=== PATIENT | male | born 1945 | race Caucasian/White ===

== ENCOUNTER 2017-07-04 19:36 | Emergency (ER) | payer MEDICARE, OTHER ==
[2014-01-17 10:52] VITALS: BMI 21.5
[~2017-07-04 19:36] MED LIST: ASPIRIN EC81 M1 PO; COUMADIN1 MG; RYTHMOL225 MG PO
[2017-07-04 20:06] LABS: BASOPHILS 0.1 % (0-2); EOSINOPHILS 0.1 % (0-7); HEMATOCRIT 41.7 % (42.0-54.0); HEMOGLOBIN 14.1 g/dL (13.5-17.5); IMMATURE GRANULOCYTES 0.1 % (0-5); LYMPHOCYTES 3.4 % (15-50); MCH 30.5 pg (26.0-34.0); MCHC 33.8 g/dL (31.0-37.0); MCV 90.3 fL (80.0-100.0); MEAN PLATELET VOLUME 11.2 fL (7.4-10.4); MONOCYTES 7.8 % (2-11); NEUTROPHILS 88.5 % (40-80); PLATELET COUNT 160 10x3/uL (130-400); RBC 4.62 10x6/uL (4.20-6.10); RDW 13.2 % (11.5-14.5); WBC 15.2 10x3/uL (4.8-10.8)
[2017-07-04 20:22] LABS: ALBUMIN 3.1 g/dL (3.4-5.0); ANION GAP 12.1 mmol/L (8-16); BILIRUBIN - TOTAL 0.75 mg/dL (0.2-1.3); CALCIUM 9.1 mg/dL (8.5-10.1); CARBON DIOXIDE 25.8 mmol/L (21.0-32.0); CREATININE - SERUM 1.5 mg/dL (0.6-1.3); POTASSIUM - SERUM 3.9 mmol/L (3.5-5.1); PROTEIN - SERUM 7.5 g/dL (6.4-8.2)
[2017-07-04 22:02] LABS: INR 2.06 (0.85-1.17); PROTIME 22.6 SECONDS (11.6-15.0)
[2017-07-04 22:06] LABS: CREATINE KINASE 45 UL (21-232); PRO BNP 298 pg/mL (0-125); TROPONIN-I < 0.017 ng/mL (0.000-0.060)
== END 2017-07-04 22:42 | disposition home or self-care (01) ==
LOC: D.ER 19:36
PROVIDERS: Emergency Medicine; Nurse Practitioner Family
DX: J20.9 Acute bronchitis, unspecified (principal); J44.9 Chronic obstructive pulmonary disease, unspecified; I25.10 Atherosclerotic heart disease of native coronary artery without angina pectoris; R00.0 Tachycardia, unspecified; I45.10 Unspecified right bundle-branch block

== ENCOUNTER 2019-01-29 19:31 | Inpatient (IN) | payer MEDICARE, OTHER ==
[~2019-01-29] VITALS: Ht 177.8 cm; Wt 76.6 kg
[2019-01-29] MEDS ORDERED: SPIRIVA18 MCG INH (19:37)
[2019-01-29] MEDS ORDERED: SYMBICORT 16010.2 GM INH (19:37)
--- NOTE | 2019-01-29 19:53 | NUR ---
NTG ADMINISTERED PER EDP ELAINA INSTRUCTION.
[2019-01-29 20:02] LABS: BASOPHILS 0.2 % (0-2); EOSINOPHILS 3.4 % (0-7); HEMATOCRIT 44.3 % (42.0-54.0); HEMOGLOBIN 15.2 g/dL (13.5-17.5); IMMATURE GRANULOCYTES 0.2 % (0-5); MCH 30.7 pg (26.0-34.0); MCHC 34.3 g/dL (31.0-37.0); MCV 89.5 fL (80.0-100.0); MEAN PLATELET VOLUME 10.8 fL (7.4-10.4); MONOCYTES 12.6 % (2-11); NEUTROPHILS 62.6 % (40-80); PLATELET COUNT 189 10x3/uL (130-400); RBC 4.95 10x6/uL (4.20-6.10); RDW 13.1 % (11.5-14.5); WBC 9.9 10x3/uL (4.8-10.8)
--- NOTE | 2019-01-29 20:05 | NUR ---
PT DENIES RELIEF FROM NTG.
--- NOTE | 2019-01-29 20:17 | NUR ---
CONSENT SIGNED BY PT AND WITNESSED BY 2 RNS FOR CHEST TUBE PLACEMENT.
[2019-01-29 20:25] LABS: APTT 25.5 SECONDS (22.8-39.4); INR 0.98 (0.85-1.17); PROTIME 12.4 SECONDS (11.6-15.0)
[2019-01-29 20:28] LABS: ALBUMIN 3.7 g/dL (3.4-5.0); ALKALINE PHOSPHATASE 96 U/L (46-116); ALT (SGPT) 18 U/L (10-68); BILIRUBIN - TOTAL 0.32 mg/dL (0.2-1.3); CALC OSMOLALITY 283 mosm/kg (275-300); CALCIUM 9.5 mg/dL (8.5-10.1); CARBON DIOXIDE 25.8 mmol/L (21.0-32.0); CHLORIDE - SERUM 104 mmol/L (98-107); CREATININE - SERUM 1.3 mg/dL (0.6-1.3); GLUCOSE 122 mg/dL (74-106); POTASSIUM - SERUM 4.1 mmol/L (3.5-5.1); SODIUM 141 mmol/L (136-145); UREA NITROGEN 19 mg/dL (7-18); eGFR NON AFRICAN AMERICAN 57 mL/min (90-120)
[2019-01-29 20:30] VITALS: BP 141/83
[2019-01-29 20:39] LABS: CKMB 0.5 U/L (0.0-3.6); CREATINE KINASE 43 UL (21-232); MAGNESIUM - SERUM 2.1 mg/dL (1.8-2.4)
[2019-01-29 20:47] LABS: TROPONIN-I < 0.017 ng/mL (0.000-0.060)
[2019-01-29 21:00] VITALS: BP 130/89
--- NOTE | 2019-01-29 21:05 | NUR ---
RN'S AND EDP ELAINA AT PT BEDSIDE FOR CHEST TUBE INSERTION USING STERILE TECHNIQUE.
[2019-01-29 21:30] VITALS: BP 133/84
--- NOTE | 2019-01-29 21:32 | NUR ---
PT REPORTS DECREASE IN PAIN AND DECREASE IN SOB. O2 SAT 91% ON 4L.
--- NOTE | 2019-01-29 22:09 | NUR ---
PT ROOM CHANGED FROM CV03 TO ICU 2301, RN SPOKE TO LEILANI DILL REGARDING PT.
--- NOTE | 2019-01-29 22:15 | NUR ---
PATIENT ARRIVED ON UNIT VIA STRETCHER ACCCOMPANIED BY ER STAFF. LEFT ANTERIOR CHEST TUBE NOTED. PATIENT SELF TRANSFERRED FROM STRETCHER TO ICU BED - HOOKED TO MONITORS, ALARMS ON AND FUNCTIONING AT THIS TIME. PATIENT EXPERIENCE SOB ON EXERTION, INCREASE RESPIRATORY RATE, HEART RATE AND BLOOD PRESSURE NOTED AT THIS TIME. O2 TIRTRATED TO 4L INSTRUCTED PATIENT TO SLOW, PURSE LIP BREATHING. PATIENT ABLE TO SLOW RESPIRATIONS WITH COACHING. VITALS RETAKEN SUICDIE SCREENING, HEALTH HISTORY, MEDICATION REVIEW AND ASSESSMENT COMPLETED AT THIS TIME. AT BEDSIDE KEEPING BELONGINGS WITH HER. PATIENT REFUSES TO REMOVE PANTS AND WEAR A HOSPITAL GOWN AT THIS TIME.
[2019-01-29] MEDS ORDERED: METOPROLOL TART25 MG PO (22:53)
[2019-01-29] MEDS ORDERED: SINGULAIR10 MG PO (22:54)
[2019-01-29 22:55] VITALS: BP 153/96; BMI 22.2
[2019-01-29] MEDS ORDERED: ALBUTEROL SULF8.5 GM INH (22:56)
[2019-01-30] VITALS (9 sets, daily range): BP systolic 107–135; BP diastolic 53–87; BMI 22.2
--- NOTE | 2019-01-30 04:07 | NUR ---
RADIOLOGY AT BEDSIDE FOR CHEST X-RAY. PATIENT DENIES NEEDS AT THIS TIME
--- NOTE | 2019-01-30 07:00 | NUR ---
REPORT RECEIVED. ASSESSMENT COMPLETE PER FLOW SHEET. VSS. PT DENEIS NEEDS WILL CONTINUE TO MONITOR
--- NOTE | 2019-01-30 08:54 | NUR ---
FAMILY AT [facility] GIVEN UPDATE. ATE 80% BREAKFAST. DENIES NEEDS WILL CONTNIUE TO MONITOR
--- NOTE | 2019-01-30 10:50 | NUR ---
DR MORRISON AT BEDSIDE GIVEN UPDATE. NEW ORDERS RECEIVED
--- NOTE | 2019-01-30 12:10 | NUR ---
FAMILY AT BEDSIDE GIVEN UDPATE NO NEW CHANGES WILL CONTINUE TO MONITOR
--- NOTE | 2019-01-30 15:15 | NUR ---
PT RECIEVED FROM ICU TO ROOM 2206. AWAKE AND ALERT. REPORTS SOB AT THIS TIME, PT REPORTS DUE TO TRANSFER. O2 @ 5L NC IN PLACE AT THIS TIME, EDUCATED PT TO TAKE SLOW DEEP BREATHS, SOB LESSENED. CHEST TUBE TO LEFT CHEST WALL TO 20CM SUCTIONING AT THIS TIME, CHEST TUBE CANISTER INTACT WITH SCANT AMOUNT OF BLOOD TINGED DRAINAGE. IV TO LEFT AC SALINE LOC'D. ORIENTED TO CL, ROOM AND BED CONTROLS. DENIES QUESTIONS AT THIS TIME. CL WITHIN REACH. ENCOURAGED TO CALL WITH NEEDS. CONTINUE POC
--- NOTE | 2019-01-30 19:46 | NUR ---
WALKED IN PT ROOM TO INTRODUCE MYSELF FOR CHANGE OF SHIFT. PT ALERT AND ORIENTED. SHOWING SIGNS OF SHORTNESS OF BREATH. PT HAD IN HIS HAND HIS CHEST TUBE. IT HAS COMPLETLEY COME OUT OF PT CHEST. PT STATES STARTING TO HAVE SHORTNESS OF BREATH. 5LO2 NASAL CANNULA. WILL CALL AND FALLOW UP.
--- NOTE | 2019-01-30 21:46 | NUR ---
ASSISTED DR PATE PLACEMENT OF CHEST TUBE AT BEDSIDE. CHEST X-RAY BEING DONE NOW.
--- NOTE | 2019-01-31 01:38 | NUR ---
PT RESTING IN BED. ALERT AND ORIENTED. NO SIGNS OF DISTRESS. BREATHING EVEN AND UNLABORED. IV SITE LT AC DRESSING CLEAN DRY AND INTACT. NO SIGNS OF INFECTION. SKIN CLEAN DRY AND INTACT. 5LO2 NASAL CANNULA. DRESSING RT CHEST CLEAN DRY AND INTACT. LT LOWER CHEST TUBE IN PLACE. DRESSING CLEAN DRY AND INTACT. BOWEL SOUNDS ACTIVE. NO LOWER LEG SWELLING PRESENT. WILL CONTINUE PLAN OF CARE. CALL LIGHT IN REACH. BED LOWERED AND LOCKED. BED RAILS UPX2.
--- NOTE | 2019-01-31 04:24 | NUR ---
I have reviewed this patient and I concur with the Shift Assessment completed by the Licensed Practical Nurse today this shift.
[2019-01-31 04:49] LABS: BASOPHILS 0.1 % (0-2); EOSINOPHILS 2.3 % (0-7); HEMATOCRIT 39.4 % (42.0-54.0); HEMOGLOBIN 13.4 g/dL (13.5-17.5); IMMATURE GRANULOCYTES 0.2 % (0-5); LYMPHOCYTES 14.5 % (15-50); MCH 30.9 pg (26.0-34.0); MCV 90.8 fL (80.0-100.0); MONOCYTES 11.3 % (2-11); NEUTROPHILS 71.6 % (40-80); PLATELET COUNT 163 10x3/uL (130-400); RBC 4.34 10x6/uL (4.20-6.10); RDW 13.3 % (11.5-14.5); WBC 10.1 10x3/uL (4.8-10.8)
[2019-01-31 05:04] LABS: ANION GAP 15.3 mmol/L (8-16); CALCIUM 8.9 mg/dL (8.5-10.1); CARBON DIOXIDE 26.7 mmol/L (21.0-32.0); CREATININE - SERUM 1.3 mg/dL (0.6-1.3)
[2019-01-31 05:08] VITALS: BP 126/85
--- NOTE | 2019-01-31 07:15 | NUR ---
REC'D IN BED AWAKE AND ALERT. RESP EVEN AND UNLABORED WITH NO DISTRESS NOTED. CAN EXPRESS NEEDS AND WANTS. NO C/O NOTED OR VOICED. ASSESSMENT COMPLETED. C/L IN REACH AT BEDSIDE.
[2019-01-31 08:56] VITALS: BP 124/63
--- NOTE | 2019-01-31 10:21 | NUR ---
MEDICATED WITH MOPRHINE AT THIS TIME FOR C/O CHEST PAIN RATING 9/10 ON PAIN SCALE. C/L IN REACH AT BEDSIDE.
--- NOTE | 2019-01-31 11:46 | NUR ---
I have reviewed this patient and I concur with the Shift Assessment completed by the Licensed Practical Nurse today this shift.
[2019-01-31 12:55] VITALS: BP 127/63
--- NOTE | 2019-01-31 13:44 | MORECARE ---
CASE MANAGEMENT DISCHARGE SUMMARY PATIENT: XIMENA MANZANO UNIT: [id number] ADM DATE: 01/29/19 AGE: 73 : 44 SEX: M ROOM/BED: D.2207 AUTHOR: MULUGETA HENRY PHYSICIAN: REFERRING PHYSICIAN: GWENDOLYN PRESLEY MD DATE OF SERVICE: 01/31/19 Discharge Plan Patient Name: XIMENA MANZANO Facility: [facility]:[place] : 1945 Planned Disposition: Inpatient Rehab Anticipated Discharge Date: Discharge Date: Expected LOS: Initial Reviewer: [email or web address] Initial Review Date: 01/29/2019 Generated: 01/31/19 2:44 pm Comments DCP- Discharge Planning Updated by [id number]: Anabella Dickey on 01/31/19 12:[address] Patient Name: XIMENA MANZANO Admission Status: ER Accout number: [id number] Admission Date: 01-29-2019 : 1945 Admission Diagnosis: Attending: GWENDOLYN PRESLEY Current LOS: 2 Anticipated DC Date: Planned Disposition: Inpatient Rehab Primary Insurance: MEDICARE A & B Discharge Planning Comments: CM met with patient to complete initial dc planning assessment. CM educated patient on the CM role and verbal consent given by patient to complete assessment. Patient lives at home with is where he is independent with his care, but has been having issues with walking per his . At discharge patient plans to return home and feels this is a safe discharge. CM discussed availability of home health, rehab services, and medical equipment. He has home O2 that he wears 24/7 from [facility] in [place] (NNAMDI signed for DME) His stated that he needs a walker with a chair, because he has been trouble before he was in the hospital. They discussed inpatient rehab when he is stable to DC & both thought it would be a good idea when able. Patient denied any other known discharge needs at this time. CM will continue to follow and will assist as needed with dc plans/needs. Veneer Drier Feeder: Anabella Dickey DCPIA - Discharge Planning Initial Assessment Updated by [id number]: Anabella Dickey on 01/31/19 1:38 pm * Is the patient Alert and Oriented? Yes * How many steps to enter\exit or inside your home? * PCP [facility]OREAN * [place] [facility] [place] * Preadmission Environment Home with Family * ADLs Independent * Equipment Oxygen * List name and contact numbers for known caregivers / representatives who currently or will assist patient after discharge: RODNEY MANZANO [phone] * Verbal permission to speak to the caregivers and representatives has been obtained from the patient. Yes * Community resources currently utilized None * Additional services required to return to the preadmission environment? Yes * Has this patient been hospitalized within the prior 30 days at any hospital? No Coverage Notice Reviewer: [id number] Damien Dickey Notice Issued Date-Time: 01/31/2019 13:35 Notice Type: Patient Choice Letter Notice Delivered To: Patient Relationship to Patient: Meat And Poultry Inspector Name: Delivery Method: HAND - Hand Delivered Vane Days: Prior Verbal Notification: Recipient Understood Notice: Yes Recipient Signature: Yes Med Rec Note Co-signed by Attending: Coverage Notice Comment: nnamdi for [facility] in [place] Patient Name: XIMENA MANZANO Page [phone] at 1344 All edits/amendments must be made on the electronic document DICTATION DATE: 01/31/19 1344 SURGICAL PATHOLOGIST: HANG 01/31/19 1344 RPT#: [id number] DC DATE: STATUS: ADM IN [facility] [address] [place] [address] END OF REPORT
--- NOTE | 2019-01-31 14:18 | NUR ---
C/O LEFT CHEST PAIN RATING 9/10 ON PAIN SCALE. MEDICATED WITH MORPHINE PER ORDERS. C/L IN REACH
[2019-01-31 16:45] VITALS: BP 112/62
[2019-01-31 20:00] VITALS: BP 110/60
--- NOTE | 2019-01-31 22:09 | NUR ---
AWAKE,ALERT.NO COMPLAITNS AT PRESENT. DRSG TO UPPER LEFT CHEST INTACT WITHOUT DRAINAGE NOTED. CHEST TUBE TO LEFT CHEST INTACT TO 20 CM H20 SUCTION. NO DISTRESS NOTED. DRESSING INTACT TO SITE.02 @ 6L PER NC ON. RESP UNLABORED. CL IN REACH. AT BEDSIDE. REFUSES LOPRESSOR AT THIS TIME. STATES HE ONLY TAKES IT ONCE DAILY.
[2019-02-01] VITALS: BP 104/67
--- NOTE | 2019-02-01 01:26 | NUR ---
I have reviewed this patient and I concur with the Shift Assessment completed by the Licensed Practical Nurse today this shift.
[2019-02-01 04:00] VITALS: BP 106/76
[2019-02-01 06:00] LABS: BASOPHILS 0.1 % (0-2); EOSINOPHILS 3.4 % (0-7); HEMATOCRIT 39.7 % (42.0-54.0); IMMATURE GRANULOCYTES 0.2 % (0-5); LYMPHOCYTES 15.6 % (15-50); MCHC 35.3 g/dL (31.0-37.0); MCV 90.6 fL (80.0-100.0); MEAN PLATELET VOLUME 11.8 fL (7.4-10.4); MONOCYTES 12.5 % (2-11); NEUTROPHILS 68.2 % (40-80); PLATELET COUNT 144 10x3/uL (130-400); RBC 4.38 10x6/uL (4.20-6.10); RDW 13.2 % (11.5-14.5); WBC 11.1 10x3/uL (4.8-10.8)
[2019-02-01 06:35] LABS: ANION GAP 10.9 mmol/L (8-16); CALCIUM 8.7 mg/dL (8.5-10.1); CARBON DIOXIDE 28.7 mmol/L (21.0-32.0); CREATININE - SERUM 1.1 mg/dL (0.6-1.3); POTASSIUM - SERUM 4.6 mmol/L (3.5-5.1); T4 THYROXIN - FREE 1.33 ng/dL (0.76-1.46); THYROID STIMULATING HORMONE 0.67 uIU/mL (0.36-3.74)
--- NOTE | 2019-02-01 07:20 | NUR ---
REC'D IN BED AWAKE AND ALERT. RESP EVEN AND UNLABORED WITH O2 IN USE VIA NC AT 6 L/M. CAN VOICE NEEDS AND WANTS. NO C/O NOTED OR VOICED ON THIS AM. ASSESMENT COMPLETED. C/L IN REACH AT BEDSIDE.
[2019-02-01 07:59] VITALS: BP 124/64
[2019-02-01 11:55] VITALS: BP 133/57
--- NOTE | 2019-02-01 14:24 | NUR ---
I have reviewed this patient and I concur with the Shift Assessment completed by the Licensed Practical Nurse today this shift.
[2019-02-01 16:01] VITALS: BP 99/60
[2019-02-01 21:09] VITALS: BP 126/71
[2019-02-02 01:06] VITALS: BP 115/63
--- NOTE | 2019-02-02 05:03 | NUR ---
I have reviewed this patient and I concur with the Shift Assessment completed by the Licensed Practical Nurse today this shift.
[2019-02-02 05:37] VITALS: BP 122/68
[2019-02-02 06:46] LABS: BASOPHILS 0.1 % (0-2); EOSINOPHILS 3.7 % (0-7); HEMATOCRIT 39.4 % (42.0-54.0); HEMOGLOBIN 13.4 g/dL (13.5-17.5); IMMATURE GRANULOCYTES 0.2 % (0-5); LYMPHOCYTES 11.7 % (15-50); MCH 30.7 pg (26.0-34.0); MCV 90.2 fL (80.0-100.0); MONOCYTES 10.9 % (2-11); NEUTROPHILS 73.4 % (40-80); RBC 4.37 10x6/uL (4.20-6.10); WBC 10.5 10x3/uL (4.8-10.8)
[2019-02-02 06:56] LABS: PLATELET COUNT 173 10x3/uL (130-400)
[2019-02-02 07:11] LABS: ANION GAP 10.2 mmol/L (8-16); CARBON DIOXIDE 33.6 mmol/L (21.0-32.0); CREATININE - SERUM 1.2 mg/dL (0.6-1.3); POTASSIUM - SERUM 4.8 mmol/L (3.5-5.1)
--- NOTE | 2019-02-02 08:00 | NUR ---
0800 PATIENT IS ALERT AND ORIENTED, RESTING IN BED WITH HEAD OF BED ELEVATED. 02 AT 9L HIGH FLOW CANULA IN PLACE. CHEST TUBE TO LEFT CHEST. DRESSING CLEAN, DRY AND INTACT TO PLEUR EVAC TO 20CM, WALL SUCTIONING. DRAINING A BLOOD TINGED DRAINAGE. SALINE LOCK INTACT TO LEFT AC. STATES PAIN 10/10 WITH NAUSEA. TO ADMINISTER PAIN MEDS AND ANT-NAUSEA ORDERED. PATIENT DENIES FURTHER NEEDS AT THIS TIME. CALL LIGHT WITHIN REACH, ENCOURAGE TO CALL WITH NEEDS. CONTINUE PLAN OF CARE.
[2019-02-02 08:03] VITALS: BP 134/70
[2019-02-02 09:51] LABS: INR 1.05 (0.85-1.17); PROTIME 13.2 SECONDS (11.6-15.0)
[2019-02-02 12:17] VITALS: BP 102/72
--- NOTE | 2019-02-02 12:38 | NUR ---
NUTRITION F/U CHART REVIEWED, POOR PO INTAKE BREAKFAST. WILL ADD ENSURE TO MEALS IF PT AGREEABLE. RD FOLLOWING
--- NOTE | 2019-02-02 13:08 | NUR ---
TO PATIENTS ROOM PT ON 9L VIA HIGH FLOW NC, C/O PAIN, ASKED IF HE COULD HAVE PAIN MEDICINE. NOTICIED HIS LEFT AC IV IS SALINE LOCKED RED AND HARD AT SITE. THE SUB Q TISSUE UNDER TRICEPT AND FOREARM TO HAVE SWELLING AND IS RED. IV 20 GAUGE IV RESTARTED IN RIGHT FOREARM X 1 STICK, FLUSHED WITHOUT DIFFICULTY SECURED WITH TAPE AND TEGADERM, LABLED PLACED SALINE LOCKED. ROSARIO DUKE NOTIFIED OF PATIENT C/O PAIN. IV PAIN MEDICINE GIVEN ORDERED BY ROSARIO RN, AT BEDSIDE. CALL LIGHT IN REACH
[2019-02-02 15:39] VITALS: BP 113/662
--- NOTE | 2019-02-02 19:25 | NUR ---
SITTING UP IN BED WITH FAMILY AT BEDSIDE, ABLE TO VOICE ALL NEEDS, DENIES ANY PAIN OR DISTRESS AT THIS TIME. WILL NOTE ANY CHANGE.
[2019-02-02 20:05] VITALS: BP 120/66
--- NOTE | 2019-02-02 22:18 | NUR ---
I have reviewed this patient and I concur with the Shift Assessment completed by the Licensed Practical Nurse today this shift.
[2019-02-03 00:36] VITALS: BP 120/71
--- NOTE | 2019-02-03 02:29 | NUR ---
AT 0000 MORPHINE WAS GIVEN IV PER ORDERS, AT THIS TIME, PT IS RESTING, BUT HAS SOME SLIGHT NAUSEA, ZOFRAN GIVEN PER ORDERS, STATES HE HAS NOT HAD BOWEL MOVEMENT SINCE BEFORE ADMISSION, WILL PASS ON TO DAY NURSE. WILL NOTE ANY CHANGE.
--- NOTE | 2019-02-03 04:31 | NUR ---
has rested fair this shift. family still at bedside. will note any change.
[2019-02-03 04:55] VITALS: BP 118/75
[2019-02-03 06:32] LABS: BASOPHILS 0.1 % (0-2); EOSINOPHILS 3.8 % (0-7); HEMATOCRIT 36.7 % (42.0-54.0); HEMOGLOBIN 12.7 g/dL (13.5-17.5); IMMATURE GRANULOCYTES 0.3 % (0-5); MCH 30.9 pg (26.0-34.0); MCHC 34.6 g/dL (31.0-37.0); MCV 89.3 fL (80.0-100.0); MONOCYTES 10.9 % (2-11); NEUTROPHILS 74.9 % (40-80); PLATELET COUNT 173 10x3/uL (130-400); RBC 4.11 10x6/uL (4.20-6.10); RDW 12.9 % (11.5-14.5); WBC 10.7 10x3/uL (4.8-10.8)
[2019-02-03 06:47] LABS: ANION GAP 9.7 mmol/L (8-16); CARBON DIOXIDE 31.6 mmol/L (21.0-32.0); CREATININE - SERUM 1.1 mg/dL (0.6-1.3); POTASSIUM - SERUM 4.3 mmol/L (3.5-5.1)
[2019-02-03 08:04] VITALS: BP 123/62
--- NOTE | 2019-02-03 08:15 | NUR ---
PATIENT IS ALERT AND ORIENTED. PATIENTS STATES HE IS HAVING NO PAIN OR NAUSEA, BUT THAT HE HAS NOT HAD A BOWEL MOVEMENT IN DAYS. LEFT CHEST TUBE CONNECTED TO DRAINAGE SYSTEM @ 20CM. AMOUNT OF DRAINAGE IS 470ML. ENCOURAGED TO CALL WITH ANY NEEDS. CALL LIGHT AND TABLE IN REACH.
--- NOTE | 2019-02-03 09:30 | NUR ---
0930 PATIENT GIVENT ENEMA. 0950 PATIENT HAD LARGE BOWEL MOVEMENT.
[2019-02-03 12:50] VITALS: BP 112/70
[2019-02-03 16:42] VITALS: BP 110/69
--- NOTE | 2019-02-03 19:15 | NUR ---
PT ALERT AND ORIENTED WITH FAMILY AT BEDSIDE. PATIENT IS PALE. HAS LEFT SIDED CHEST TUBE WITH BLOODY OUTPUT NOTED. LUNGS PRESENT DIMINISHED BILATERALLY. O2 AT 9L HIGH FLOW. RIGHT WRIST IV IS SALINE LOCKED BUT FLUSHES WELL. HAND KIER BOILER AND FOOT PUMPS ARE STRONG AND EQUAL. PATIENT TURNS EASILY ON COMMANDS. DENIES FURTHER ISSUES AT THIS TIME. STATES THAT SHE WILL BE STAYING OVER NIGHT. CALL LIGHT IN REACH. CPOC.
[2019-02-03 20:00] VITALS: BP 122/68
[2019-02-03 20:20] LABS: APPEARANCE CLEAR (CLEAR); BILIRUBIN NEGATIVE (NEGATIVE); COLOR YELLOW (YELLOW); GLUCOSE NEGATIVE (NEGATIVE); KETONE NEGATIVE (NEGATIVE); NITRITE NEGATIVE (NEGATIVE); PROTEIN TRACE mg/dL (NEGATIVE); SPECIFIC GRAVITY 1.015 (1.005-1.020); UROBILINOGEN NORMAL (NORMAL)
[2019-02-04] VITALS: BP 118/66; BP 118/696
[2019-02-04 04:00] VITALS: BP 115/75
[2019-02-04 05:30] LABS: BASOPHILS 0.1 % (0-2); EOSINOPHILS 5.6 % (0-7); IMMATURE GRANULOCYTES 0.1 % (0-5); LYMPHOCYTES 9.2 % (15-50); MCH 30.5 pg (26.0-34.0); MCHC 34.3 g/dL (31.0-37.0); MCV 88.8 fL (80.0-100.0); MEAN PLATELET VOLUME 11.5 fL (7.4-10.4); MONOCYTES 12.6 % (2-11); NEUTROPHILS 72.4 % (40-80); PLATELET COUNT 175 10x3/uL (130-400); RBC 3.94 10x6/uL (4.20-6.10); RDW 12.8 % (11.5-14.5); WBC 9.5 10x3/uL (4.8-10.8)
[2019-02-04 05:55] LABS: ALBUMIN 2.3 g/dL (3.4-5.0); ALKALINE PHOSPHATASE 75 U/L (46-116); ALT (SGPT) 20 U/L (10-68); BILIRUBIN - TOTAL 0.34 mg/dL (0.2-1.3); CALC OSMOLALITY 277 mosm/kg (275-300); CALCIUM 8.6 mg/dL (8.5-10.1); CARBON DIOXIDE 31.5 mmol/L (21.0-32.0); CHLORIDE - SERUM 99 mmol/L (98-107); GLUCOSE 121 mg/dL (74-106); POTASSIUM - SERUM 4.4 mmol/L (3.5-5.1); PROTEIN - SERUM 6.4 g/dL (6.4-8.2); SODIUM 137 mmol/L (136-145); UREA NITROGEN 21 mg/dL (7-18); eGFR NON AFRICAN AMERICAN 78 mL/min (90-120)
[2019-02-04 06:03] LABS: APTT 35.3 SECONDS (22.8-39.4); INR 1.06 (0.85-1.17); PROTIME 13.3 SECONDS (11.6-15.0)
--- NOTE | 2019-02-04 06:42 | NUR ---
I have reviewed this patient and I concur with the Shift Assessment completed by the Licensed Practical Nurse today this shift.
[2019-02-04 08:13] VITALS: BP 128/72
[2019-02-04 13:21] VITALS: BP 130/72
[2019-02-04 16:11] VITALS: BP 114/64
[2019-02-04 19:55] VITALS: BP 130/67
--- NOTE | 2019-02-04 22:01 | NUR ---
PT IN BED RESTING WITH AT BEDSIDE. ALERT AND ORENTED ABLE TO VOICE NEEDS AND WANTS TO STAFF. O2 AT 9 L HIGH FLOW. TELEMETRY IN PLACE CHEST TUB IN PLACE TO LEFT SIDE.ABD IS DISTRENDED WITH ACTIVE BOULE SOUNDS REFUSED 2ED HALF OF ENAMA AT THIS TIME STATED HE WANTED TO WATE. CALL LIGHT AND WATER IN REACH, BED LOW,
[2019-02-05] VITALS (7 sets, daily range): BP systolic 108–135; BP diastolic 66–77
[2019-02-05 05:11] LABS: BASOPHILS 0.1 % (0-2); EOSINOPHILS 4.8 % (0-7); HEMATOCRIT 33.7 % (42.0-54.0); HEMOGLOBIN 11.5 g/dL (13.5-17.5); IMMATURE GRANULOCYTES 0.2 % (0-5); MCH 30.5 pg (26.0-34.0); MCHC 34.1 g/dL (31.0-37.0); MCV 89.4 fL (80.0-100.0); MEAN PLATELET VOLUME 10.9 fL (7.4-10.4); MONOCYTES 12.6 % (2-11); NEUTROPHILS 73.3 % (40-80); PLATELET COUNT 178 10x3/uL (130-400); RBC 3.77 10x6/uL (4.20-6.10); RDW 12.8 % (11.5-14.5); WBC 9.8 10x3/uL (4.8-10.8)
[2019-02-05 05:23] LABS: CALCIUM 8.2 mg/dL (8.5-10.1); CARBON DIOXIDE 29.5 mmol/L (21.0-32.0); CHLORIDE - SERUM 98 mmol/L (98-107); GLUCOSE 129 mg/dL (74-106); POTASSIUM - SERUM 4.7 mmol/L (3.5-5.1); SODIUM 134 mmol/L (136-145); eGFR NON AFRICAN AMERICAN 78 mL/min (90-120)
[2019-02-05 05:43] LABS: CALC OSMOLALITY 273 mosm/kg (275-300); UREA NITROGEN 24 mg/dL (7-18)
--- NOTE | 2019-02-05 15:00 | NUR ---
PATIENT RECIEVED SS ENEMA AT THIS TIME WITH NO RESULTS. PATIENT STATES THAT HE DOESNT FEEL ANY BLOATING OR PRESSURE LIKE HE NEEDS TO HAVE A BM. STATED HE HASNT ATE THAT MUCH IN A FEW DAYS. IV INTACT AT THIS TIME. FAMILY AT BEDSIDE. CALL LIGHT WITHIN REACH.
--- NOTE | 2019-02-05 17:51 | MORECARE ---
CASE MANAGEMENT DISCHARGE SUMMARY PATIENT: XIMENA MANZANO UNIT: [id number] ADM DATE: 01/29/19 AGE: 73 : 44 SEX: M ROOM/BED: D.2207 AUTHOR: MULUGETA HENRY PHYSICIAN: REFERRING PHYSICIAN: GWENDOLYN PRESLEY MD DATE OF SERVICE: 02/05/19 Discharge Plan Patient Name: XIMENA MANZANO Facility: [facility]:[place] : 1945 Planned Disposition: Inpatient Rehab Anticipated Discharge Date: 02/05/19 Discharge Date: Expected LOS: 7 Initial Reviewer: [email or web address] Initial Review Date: 01/29/2019 Generated: 02/05/19 6:51 pm Comments DCP- Discharge Planning Updated by [id number]: Anabella Dickey on 01/31/19 12:[address] Patient Name: XIMENA MANZANO Admission Status: ER Accout number: [id number] Admission Date: 01-29-2019 : 1945 Admission Diagnosis: Attending: GWENDOLYN PRESLEY Current LOS: 2 Anticipated DC Date: Planned Disposition: Inpatient Rehab Primary Insurance: MEDICARE A & B Discharge Planning Comments: CM met with patient to complete initial dc planning assessment. CM educated patient on the CM role and verbal consent given by patient to complete assessment. Patient lives at home with is where he is independent with his care, but has been having issues with walking per his . At discharge patient plans to return home and feels this is a safe discharge. CM discussed availability of home health, rehab services, and medical equipment. He has home O2 that he wears 24/7 from [facility] in [place] (NNAMDI signed for DME) His stated that he needs a walker with a chair, because he has been trouble before he was in the hospital. They discussed inpatient rehab when he is stable to DC & both thought it would be a good idea when able. Patient denied any other known discharge needs at this time. CM will continue to follow and will assist as needed with dc plans/needs. Relish Blender: Anabella Dickey DCPIA - Discharge Planning Initial Assessment Updated by [email or web address]: Anabella Dickey on 01/31/19 1:38 pm * Is the patient Alert and Oriented? Yes * How many steps to enter\exit or inside your home? * PCP [facility] * [facility] [facility] [place] * Preadmission Environment Home with Family * ADLs Independent * Equipment Oxygen * List name and contact numbers for known caregivers / representatives who currently or will assist patient after discharge: RODNEY MANZANO [phone] * Verbal permission to speak to the caregivers and representatives has been obtained from the patient. Yes * Community resources currently utilized None * Additional services required to return to the preadmission environment? Yes * Has this patient been hospitalized within the prior 30 days at any hospital? No Coverage Notice Reviewer: [id number] Damien Dickey Notice Issued Date-Time: 01/31/2019 13:35 Notice Type: Patient Choice Letter Notice Delivered To: Patient Relationship to Patient: Ceramic Design Engineer Name: Delivery Method: HAND - Hand Delivered Vane Days: Prior Verbal Notification: Recipient Understood Notice: Yes Recipient Signature: Yes Med Rec Note Co-signed by Attending: Coverage Notice Comment: nnamdi for [facility] in [place] Last DP export: 01/31/19 12:44 pm Patient Name: XIMENA MANZANO Page [phone] at 1751 All edits/amendments must be made on the electronic document DICTATION DATE: 02/05/191750 HARD ROCK DRILL OPERATOR: HANG 02/05/191750 RPT#: [id number] DC DATE: STATUS: ADM IN [facility] [address] [place] [address] END OF REPORT
--- NOTE | 2019-02-05 18:45 | NUR ---
PATIENT IN BED WITH IV INTACT. CHEST TUBE WITH 20 CM SUCTION. NO COMPLAINTS OR SIGNS OF DISTRESS. FAMILY AT BEDSIDE. [facility].
--- NOTE | 2019-02-05 20:01 | NUR ---
PATIENT IS ALERT AND ORENTED ABLE TO VOICE NEEDS AND WANTS TO STAFF. AT BEDSIDE WATER AND CALL LIGHT IN REACH. CHEST TUB IN PLACE TO LEFT SIDE AT 20CM. IV IN PLACE TO RIGHT WRIST SL. NO NEEDS NOTED OR STATED AT THIS TIME. CHECKED OFTEN FOR NEEDS AND SAFETY.
[2019-02-06] VITALS (26 sets, daily range): BP systolic 99–141; BP diastolic 42–77; Ht 177.8 cm; Wt 76.6 kg
--- NOTE | 2019-02-06 06:38 | NUR ---
PT OFF FLOOR TO SURG.
--- NOTE | 2019-02-06 07:12 | NUR ---
PATIENT IS IN SURGERY AT THIS TIME.
--- NOTE | 2019-02-06 11:25 | NUR ---
REC'D PT FROM OR, MONITORS ON AND WORKING, PT AWAKE AND CONFUSED. TWO LEFT CHEST TUBES NOTED TO DRAINAGE. DRESSING CDI. RIGHT RADIAL WRIST A LINE DRESSING CDI WRIST PROTECTOR ON WITH GOOD WAVE FORM. LEFT SUBCLAVIAN CENTRAL LINE, DRESSING CDI. BARR DRAINING YELLOW URINE. CXR ORDERED.
--- NOTE | 2019-02-06 12:00 | NUR ---
MONITORS ON AND WORKING, O2 ON 8LPM HIGH FLOW NC. NITRO TURNED OFF. SBP REMAINS BETWEEN 90-140, PT BECOMING MORE ALERT AND ORIENTED. CHEST TUBE X 2 TO DRAINAGE. CALL LIGHT WITHIN REACH, WILL CONTINUE TO OBSERVE.
--- NOTE | 2019-02-06 15:00 | NUR ---
PT TURN COUGH DEEP BREATHE, PT TOLERATES WELL. MONITORS ON AND WORKING. LEFT CHEST TUBE D/C'D. ONE LEFT CHEST TUBE TO SUCTION. SEE FLOW SHEET FOR FURTHER DETIALS. CALL LIGHT WITHIN REACH, WILL CONTINUE TO OBSERVE.
--- NOTE | 2019-02-06 16:00 | NUR ---
ART LINE D/C'D. FAMILY AT BEDSIDE, UPDATE PROVIDED, MONITORS ON AND WORKING. CALL LIGHT WITHIN REACH, WILL CONTINUE TO OBSERVE.
--- NOTE | 2019-02-06 17:00 | NUR ---
COMPLETE LINEN CHANGE DONE AT THIS TIME, PT TOLERATED WELL. MONITORS ON AND WORKING, VITALS STABLE. PT AWAKE AND ALERT, FAMILY AT BEDSIDE. PT 02 IMPROVING AT 96% ON 6LPM NC.
--- NOTE | 2019-02-06 21:00 | NUR ---
FAMILY AT BEDSIDE, QUESTIONS ANSWERED, PT AAOx4, MEDS GIVEN PER MAR/ORDERS
[2019-02-07] VITALS (24 sets, daily range): BP systolic 98–138; BP diastolic 33–72
[2019-02-07 06:35] LABS: BASOPHILS 0.1 % (0-2); EOSINOPHILS 3.4 % (0-7); HEMATOCRIT 35.6 % (42.0-54.0); HEMOGLOBIN 12.1 g/dL (13.5-17.5); IMMATURE GRANULOCYTES 0.3 % (0-5); LYMPHOCYTES 7.7 % (15-50); MCH 30.6 pg (26.0-34.0); MCV 90.1 fL (80.0-100.0); MONOCYTES 10.9 % (2-11); NEUTROPHILS 77.6 % (40-80); RBC 3.95 10x6/uL (4.20-6.10); WBC 14.1 10x3/uL (4.8-10.8)
[2019-02-07 06:36] LABS: PLATELET COUNT 216 10x3/uL (130-400)
[2019-02-07 06:48] LABS: ANION GAP 8.8 mmol/L (8-16); BILIRUBIN - TOTAL 0.54 mg/dL (0.2-1.3); CALCIUM 7.8 mg/dL (8.5-10.1); CARBON DIOXIDE 30.1 mmol/L (21.0-32.0); CREATININE - SERUM 1.1 mg/dL (0.6-1.3); MAGNESIUM - SERUM 2.4 mg/dL (1.8-2.4); PHOSPHOROUS 3.2 mg/dL (2.5-4.9); POTASSIUM - SERUM 4.9 mmol/L (3.5-5.1); PROTEIN - SERUM 5.9 g/dL (6.4-8.2)
--- NOTE | 2019-02-07 07:00 | NUR ---
RECEIVED REPORT FROM LELIANI TRACY. PT AWAKE AND ALERT AND ORIENTED. BP STABLE. SINUS TACHY--108. L CHEST TUBE C CONTINUOUS AIR LEAK. LEFT LUNG FIELD DIMINISEHD. ON 8L/HFNC. 90% O2 SAT. L SUBCLAVIAN C MORPHINE CEMENTER MACHINE JOINER AND PLASMALYTE AT 30. WILL CONTINUE TO MONITOR
--- NOTE | 2019-02-07 08:39 | NUR ---
TURNED TO RIGHT SIDE AND INSTRUCTED TO COUGH AND DEEP BREATH
--- NOTE | 2019-02-07 11:37 | NUR ---
ORDERS TO REMOVE ISS AND FLUTTER VALVE FROM PATIENT ROOM DUE TO PRESENCE OF AIR LEAK IN CHEST TUBE--DR. JOHN
--- NOTE | 2019-02-07 12:11 | NUR ---
NO NEED FOR NPO STATUS PER DR. GORDON. MAY SIT UP IN CHAIR NOW
--- NOTE | 2019-02-07 12:17 | OP ---
PATIENT NAME: XIMENA MANZANO MEDICAL RECORD: [id number] :[birth year] LOCATION:D.CVI D.CV07 ADMISSION DATE:01/29/19 SURGEON: BASIL GORDON MD DATE OF OPERATION: 02/06/2019 SURGEON: Basil Gordon MD FAMILY HEALTH NURSE PRACTITIONER: GIANFRANCO Daily MD OPERATIONS PERFORMED: 1. Left thoracoscopy. 2. Left thoracotomy. 3. Lysis of multiple intrapleural adhesions, chronic. 4. Resection of bulla, left lower lobe. 5. Mechanical pleurodesis. 6. Bronchoscopy. PREOPERATIVE DIAGNOSIS: Severe bullous emphysema with spontaneous pneumothorax. POSTOPERATIVE DIAGNOSIS: Severe bullous emphysema with spontaneous pneumothorax. ANESTHESIA: General endotracheal anesthesia, double lumen. SPECIMENS: 1. Bulla. 2. Apical tissue. ESTIMATED BLOOD LOSS: 50 cc. COMPLICATIONS: None. CONDITION: Stable. DISPOSITION: ICU. OPERATIVE FINDINGS: 1. Thoracoscopy revealing multiple adhesions in an abnormal-appearing lung with especially dense adhesions at the apex making thoracoscopic lysis of adhesions dangerous due to the proximity of the subclavian vessels. 2. Small lateral thoracotomy with intraoperative lysis of adhesions including stapling at the apex and resection of a bulla arising from the left lower lobe. 3. Mechanical pleurodesis of the parietal pleura. 4. Application of Progel. 5. Bronchoscopy. INDICATIONS: Chest tube with air leak and incomplete re-expansion of the left lung and severe underlying bullous emphysema. OPERATIVE SUMMARY IN DETAIL: The patient was brought to the operating suite. General anesthesia had been obtained. The patient had the position of the tube confirmed by bronchoscopy and then was turned into the right lateral decubitus position with appropriate padding. The left chest was sterilely prepped and draped. OPERATIVE REPORT [id number] XIMENA MANZANO An incision was made just anterior to the tip of the scapula where the pleural cavity was entered, but as noted above multiple adhesions were noted, so the camera was removed and a more anterior working port for the camera was placed, lateral working thoracotomy was made. Direct visualization was used to take down the adhesions and then using the camera, the ones inferiorly were taken down using electrocautery or sharp dissection. The apical dissection was made under direct visualization and taken down and then stapled, a large bulla arising of the lower lobe was stapled. Thorough irrigation was undertaken and hemostasis was ensured. The parietal pleura was pleurodesed mechanically, then Progel was placed along the areas where the adhesions were taken down. Chest tubes were placed inferiorly and apically. The wound was closed with 2 layers, subcutaneous and subcuticular. The patient had significant air leak. To CV ICU. TRANSINT:[id number] Voice Confirmation ID: [id number] DOCUMENT ID: [id number] BASIL GORDON MD at 1217 CC: YING JARVIS MD and GWENDOLYN PRESLEY [id number] DICTATION DATE: 02/06/19 1553 PATTERN FILER: 02/06/19 1927 ADM IN [facility] [address] [place] [address]
--- NOTE | 2019-02-07 12:47 | NUR ---
SERVED LUNCH TRAY. FAMILY IN ROOM
--- NOTE | 2019-02-07 15:00 | NUR ---
SS ENEMA GIVEN TILL BAG EMPTY. ONLY CLEAR LIQUID RETURN. ATTEMPTED DIGITAL REMOVAL BUT FELT NO IMPACTION
--- NOTE | 2019-02-07 15:21 | NUR ---
ASSISTED PATIENT UP TO CHAIR. VSS
--- NOTE | 2019-02-07 18:09 | NUR ---
CHANGED CHEST TUBE DRESSINGS THEY WERE SATURATED. CLEANED WITH BETADINE AND COVERED WITH GAUZE AND TEGADERM. ASSISTED PATIENT BACK TO BED. VSS. ALL LINENS CHANGED
--- NOTE | 2019-02-07 18:21 | NUR ---
PULLED BARR CATHETER PER DR. GORDON ORDERS.
--- NOTE | 2019-02-07 19:00 | NUR ---
REPORT RECEIVED, SHIFT ASSESSMENT COMPLETE PER FLOW SHEET, PT AAOx4, LEFT SUBCLAVIAN CVL PATENT INFUSING MEDS PER MAR, BURR GRINDER MORPHINE USE REVIEWED, CT X 1 WITH AIR LEAK NOTED, DRSG'S C/D/I, BILAT SCD'S IN PLACE, SAFTEY REVIEWED WITH PT, VSS, WILL CONTINUE TO MONITOER
[2019-02-08] VITALS (24 sets, daily range): BP systolic 103–144; BP diastolic 46–79
[2019-02-08 05:40] LABS: HEMOGLOBIN 10.8 g/dL (13.5-17.5); MCH 30.3 pg (26.0-34.0); MCHC 33.8 g/dL (31.0-37.0); MCV 89.6 fL (80.0-100.0); MEAN PLATELET VOLUME 11.2 fL (7.4-10.4); RBC 3.57 10x6/uL (4.20-6.10); WBC 13.6 10x3/uL (4.8-10.8)
[2019-02-08 06:06] LABS: ALBUMIN 1.8 g/dL (3.4-5.0); ANION GAP 7.7 mmol/L (8-16); BILIRUBIN - TOTAL 0.46 mg/dL (0.2-1.3); CALCIUM 7.9 mg/dL (8.5-10.1); CARBON DIOXIDE 30.7 mmol/L (21.0-32.0); CREATININE - SERUM 1.2 mg/dL (0.6-1.3); POTASSIUM - SERUM 4.4 mmol/L (3.5-5.1); PROTEIN - SERUM 5.7 g/dL (6.4-8.2)
--- NOTE | 2019-02-08 10:36 | NUR ---
Nutrition Follow-up: Pt reports improvement in appetite, eating ~50-75% of breakfast this AM. Per chart, pt received SS enema yesterday with no result; noted KUB ordered. Diet: Cardiac Wt: 157# Last BM: 02/03 per chart Labs reviewed Meds reviewed Continue current diet as tolerated. Offer nutrition supplements. [place] food preferences within diet restrictions. RD following.
--- NOTE | 2019-02-08 11:57 | NUR ---
MEAL TRAY DELIVERED. PT RATES PAIN 4/10 AT THIS TIME. NORCO 5MG TAB GIVEN FOR PAIN PER ORDERS. WILL CONTINUE TO MONITOR.
--- NOTE | 2019-02-08 12:54 | NUR ---
PT RESTING COMFORTABLY IN CHAIR. RATES PAIN 0/10 AFTER MEDICATION. ATE ABOUT 40% OF MEAL. DRANK ENSURE. DENIES FURTHER NEEDS AT THIS TIME. WILL CONTINUE TO MONITOR.
--- NOTE | 2019-02-08 14:30 | NUR ---
CALL LIGHT ANSWERED. PT WANTED TO BE COVERED WITH BLANKET. CHAIR RECLINED BACK FOR COMFORT. NO FURTHER NEEDS. WILL CONTINUE TO MONITOR.
--- NOTE | 2019-02-08 15:00 | NUR ---
PHLEGM WITH MOROON BLOOD NOTED AT THIS TIME. RASHID DUKE WITH DR. GORDON NOTIFIED. WILL CONTINUE TO MONITOR.
--- NOTE | 2019-02-08 18:45 | NUR ---
CHG BATH GIVEN. COMPLETE BED LINEN CHANGED. CT DRESSING CHANGED. LEFT SUBCLAVIAN CVL DRESSING CHANGED PER PROTOCOL. PT TOLERATED WELL. NO FURTHER NEEDS AT THIS TIME.
--- NOTE | 2019-02-08 19:00 | NUR ---
REPORT RECEIVED FROM DAY SHIFT RN, PT SITTING UP IN CHAIR WITH NO S/S OF ACUTE DISTRESS, DENIES PAIN, LEFT LATERAL CT x1 TO SUCTION WITH AIR LEAK NOTED, DRSG'S CHANGED DURING DAY SHIFT, LEFT UPPER BACK DRSG C/D/I, SCD AND APOLINAR NORTON ON BLE, PPP, VSS, WILL CONTINUE TO MONITOR
--- NOTE | 2019-02-08 19:15 | NUR ---
RNx2 AT BEDSIDE, PT REQUESTED TO RETURN TO BED, PT AMBULATED TO BED WITH MINIMAL ASSIST, PT SOB ON EXERTION, O2 VIA HIGH FLOW NC INCREASED AND PT INSTRUCTED TO BREATH THROUGH NOSE, PT STATED SOB RESOLVED AND DENIES PAIN OR NEEDS, LINES AND PT REPOSITIONED FOR COMFORT, VSS, WILL CONTINUE TO MONITOR
--- NOTE | 2019-02-08 23:00 | NUR ---
REASSESSMENT COMPLETE SEE FLOW SHEET FOR FURTHER, NO ACUTE CHANGE NOTED, PT DENIES PAIN OR NEEDS AT THIS TIME, REPOSITIONED IN BED FOR COMFORT, SINUS TACH AND PAC'S WITH COMPENSATORY PAUSES NOTED ON CM, OTHER VSS, CALL LIGHT IN REACH, SR UP x2, BED ALARM ON, WILL CONTINUE TO MONITOR
[2019-02-09] VITALS (24 sets, daily range): BP systolic 102–130; BP diastolic 45–76
--- NOTE | 2019-02-09 03:00 | NUR ---
REASSESSMENT COMPLETE SEE FLOW SHEET, PT RESTING COMFORTABLY IN BED, DENIES PAIN AT THIS TIME, VSS, REPOSITIONED FOR COMFORT, SMALL CUP COFFEE WITH x3 SUGAR PACKS GIVEN PER REQUEST, HOB ELEVATED, TCDB AND I/S COMPLETED, ALL DRSG'S C/D/I, WILL CONTINUE TO MONITOR
--- NOTE | 2019-02-09 05:03 | NUR ---
PT C/O LEFT UPPER CHEST PAIN/DISCOMFORT AFTER RADIOLOGY REPOSITIONED FOR X-RAY, 5/10 ON NUMERIC PAIN SCALE, VSS, MED GIVEN PER MAR/ORDERS, WILL CONTINUE TO MONITOR
[2019-02-09 06:38] LABS: ALBUMIN 1.6 g/dL (3.4-5.0); ALKALINE PHOSPHATASE 76 U/L (46-116); ALT (SGPT) 30 U/L (10-68); BILIRUBIN - TOTAL 0.34 mg/dL (0.2-1.3); CALC OSMOLALITY 277 mosm/kg (275-300); CALCIUM 7.9 mg/dL (8.5-10.1); CARBON DIOXIDE 33.3 mmol/L (21.0-32.0); CHLORIDE - SERUM 100 mmol/L (98-107); CREATININE - SERUM 0.9 mg/dL (0.6-1.3); GLUCOSE 122 mg/dL (74-106); POTASSIUM - SERUM 3.9 mmol/L (3.5-5.1); PROTEIN - SERUM 5.4 g/dL (6.4-8.2); SODIUM 136 mmol/L (136-145); UREA NITROGEN 26 mg/dL (7-18); eGFR NON AFRICAN AMERICAN 88 mL/min (90-120)
[2019-02-09 06:40] LABS: HEMATOCRIT 28.1 % (42.0-54.0); HEMOGLOBIN 9.6 g/dL (13.5-17.5); MCH 30.4 pg (26.0-34.0); MCHC 34.2 g/dL (31.0-37.0); MCV 88.9 fL (80.0-100.0); MEAN PLATELET VOLUME 11.1 fL (7.4-10.4); RBC 3.16 10x6/uL (4.20-6.10); WBC 11.9 10x3/uL (4.8-10.8)
--- NOTE | 2019-02-09 07:06 | NUR ---
OXYGEN SATURATION NOTED TRENING IN UPPER 80S WITH GOOD WAVEFORM. PT STATES SHE HAS BEEN COUGHING AND TRYING TO COUGH UP SPUTUM WHICH IS WHY HE WAS OUT OF BREATH. OXYGEN AT 10 VIA HIGH FLOW, INCREAED TO 11L HIGH FLOW. OXYGEN SATURATION NOW AT 93% WITH GOOD WAVEFORM, PT BEGINNING TO HAVE LESS SHORTNESS OF BREATH. WILL CONTINUE TO OBSERVE.
--- NOTE | 2019-02-09 09:05 | NUR ---
UP IN CHAIR AT THIS TIME. NO ACUTE DISTRESS NOTED. VSS. WILL CONTINUE PLAN OF CARE.
--- NOTE | 2019-02-09 11:22 | NUR ---
ASSITED TO TOILET AT THIS TIME VIA STAND BY ASSIST. CONTINENT BOWEL MOVEMENT NOTED, MEDIUM IN SIZE AND FORMED, BROWN. PT PROVIDED OWN KIMI CARE. UP IN CHAIR BESIDE BED. NOTED PT TO HAVE SHORTNESS OF BREATH WITH TRANSFERRING WITH SOME DESATS DURING EVENTS REQUIRING AN INCREASE IN OXYGENATION MOMENTARILY. OXYGEN INCREASED TO 10 L VIA HIGH FLOW FROM 8L. AFTER A FEW MINUITES OXYGEN SATURATION RETURNED TO 90S. OXYGEN DECREASED BACK TO 8L, PT TOLERATING WELL. NO ACUTE DISTRESS NOTED. VSS. WILL CONTINUE PLAN OF CARE.
--- NOTE | 2019-02-09 12:49 | NUR ---
PER DR PRESLEY, CANCEL ENEMA FOR TODAY SINCE PT HAD BOWEL MOVEMENT TODAY. ALSO NOTIFIED PHYSICIAN THAT PUPILS ARE LT SIDE IS A 2 AND REACTIVE AND RT SIDE IS 3 AND REACTIVE, PHYSICIAN STATED THAT THIS IS CHRONIC, PT HAS NO DEFICITS IS ALERT AND ORIENTED WITH EQUAL STREGNTHS. VSS. NO ACUTE DISTRESS NOTED. PT UP IN CHAIR VISITING WITH VISITOR. WILL CONTINUE PLAN OF CARE.
--- NOTE | 2019-02-09 13:03 | NUR ---
SITTING UP IN CHAIR VISITING WITH VISITORS. NOTED PT TO HAVE SOME PRODUCTIVE COUGHING, OXYGEN SATURATION DROPPED TO 85-89% WITH GOOD WAVEFORM. OXYGEN TITRATED UP TO 10L HIGH FLOW. OXYGEN SATURATING NOW TRENDING ABOVE 90%. NO ACUTE DISTRESS NOTED. WILL CONTINUE PLAN OF CARE.
--- NOTE | 2019-02-09 15:44 | NUR ---
UP IN CHAIR WATCHING TV AT THIS TIME. NO ACUTE DISTRESS NOTED. VSS. WILL CONTINUE PLAN OF CARE.
--- NOTE | 2019-02-09 17:50 | NUR ---
NO ACUTE DISTRESS NOTED. NO CHANGE. VSS. CALL LIGHT IN REACH. WILL CONTINUE PLAN OF CARE.
--- NOTE | 2019-02-09 18:21 | NUR ---
BED BATH OFFERED, PT REFUSED STATING HE HAD ONE LAST NIGHT AND THAT HE WOULD BE OKAY TO HAVE ONE TOMORROW. NO ACUTE DISTRESS NOTED. UP IN CHAIR WATCHING TV. WILL CONTINUE PLAN OF CARE.
--- NOTE | 2019-02-09 18:37 | NUR ---
LT CHEST TUBE DRESSING CHANGED AT THIS TIME PER ORDERS. NO REDNESS OR DRAINAGE TO SITE. NO ACUTE DISTRESS NOTED. WILL CONTINUE PLAN OF CARE.
--- NOTE | 2019-02-09 19:39 | NUR ---
PT RECEIVED IN CHAIR AT BEDSIDE. NO S/S OF DISTRESS. NO NEEDS MADE KNOWN AT THIS TIME. VSS. CALL LIGHT IN REACH. WILL CONTINUE TO OBSERVE.
--- NOTE | 2019-02-09 21:46 | NUR ---
PT RECEIVED SCHEDULED MEDICATION PER JUL, EXCEPT LACTULOSE. PT WITH BM NOTED EARLIER IN DAY A ORDERED ENIMA D/C AND PT RECEIVING MIRALAX AND COLACE. HOT METAL MIXER OPERATOR HELPER PHYSICIAN CALLED AND OK TO HOLD. PT ASK IF READY FOR BED, PT STATES THAT HE IS COMFORTABLE IN RECLINING CHAIR AND WOULD LIKE TO STAY. WILL CONTINUE TO OBSERVE.
--- NOTE | 2019-02-09 23:36 | NUR ---
PT USES CALL LIGHT FOR BEDPAN. BEDPAN PLACED. LARGE SOFT UNFORMED BROWN BM NOTED. PERICARE PROVIDED. O2 INCREASED TO 12LPM DUE TO INCREASED ACTIVITY AND PT DESATING ON HIGH FLOW CANNULA. ON 9L WHEN LEAVING ROOM AND PT MAINTAINING 92% SPO2. WILL TITRATE TOLERATED. WILL CONTINUE TO OBSERVE. REASSESSMENT COMPLETED, SEE FLOW SHEET. CALL LIGHT IN REACH.
[2019-02-10] VITALS (24 sets, daily range): BP systolic 111–157; BP diastolic 6–84
--- NOTE | 2019-02-10 01:25 | NUR ---
PT RESTING WITH EYES CLOSED AND CHEST RISING. VSS. WILL CONTINUE TO OBSERVE. CALL LIGHT IN REACH. WILL CONTINUE TO OBSERVE.
--- NOTE | 2019-02-10 02:10 | NUR ---
PT USES CALL LIGHT FOR BEDPAN. PT PLACE ON BEDPAN, WITH MEDIUM SOFT UNFORMED STOOL NOTED. PERICARE PROVIDED. PT WITH SOME DIFFICULTY BREATHING WITH ACTIVITY SPO2 DECREASES WITH O2 INCREASED TO 12LPM. WHEN MAINTAINING SPO2 GREATER THAN 92% O2 DECREASED TO 9LPM. WILL CONTINUE TO OBSERVE.
--- NOTE | 2019-02-10 03:35 | NUR ---
REASSESSMENT COMPLETED, SEE FLOW SHEET.
--- NOTE | 2019-02-10 06:36 | NUR ---
PT REFUSED BATH, BUT STATES HE WANTED TO WAIT TIL LATE MORNING.
--- NOTE | 2019-02-10 09:43 | NUR ---
Nutrition Consult/Follow-up: Appetite/PO intake fluctuating. Has been ordering Ensure with some meals. Family reports that pt recently got a new pair of dentures that still require adjustment; may benefit from dental soft/chopped meats with gravy. Multiple BMs since last night. Diet: Cardiac PO intake: 51% avg x 7 meals Wt: 159# Labs reviewed Meds reviewed Diet adjusted to include dental soft/chopped meats with gravy. +Ensure with all meals. RD following. Thanks for the consult!
--- NOTE | 2019-02-10 10:30 | NUR ---
ASSISSTED TO BED WITH PT. STATES HE HAS BEEN IN THE CHAIR ALL NIGHT.
[2019-02-10 11:24] LABS: HEMATOCRIT 30.1 % (42.0-54.0); HEMOGLOBIN 10.2 g/dL (13.5-17.5); MCH 30.5 pg (26.0-34.0); MCHC 33.9 g/dL (31.0-37.0); MCV 90.1 fL (80.0-100.0); RBC 3.34 10x6/uL (4.20-6.10); RDW 13.4 % (11.5-14.5); WBC 12.1 10x3/uL (4.8-10.8)
--- NOTE | 2019-02-10 19:00 | NUR ---
PT ASSESSMENT COMPLETED AT THIS TIME. PT AWAKE AND ALERT, PT DENIES PROBLEMS OR CONCERNS AT THIS TIME. VSS, WILL CONT TO MONITOR
--- NOTE | 2019-02-10 21:00 | NUR ---
PT TALKING WITH FAMILY AT BEDSIDE, PT TOOK PO MEDS WITH DIFFCULTY, VSS WILL CONT. MONITOR
[2019-02-11] VITALS (24 sets, daily range): BP systolic 107–143; BP diastolic 56–76
--- NOTE | 2019-02-11 01:47 | NUR ---
2300 PT REASSESSMENT COMPLETED AT THIS TIME. NO CHANGES NOTED 0100, PT RESTING WITH EYES CLOSED, RESP EVEN NON LABORED, VSS AT THIS TIME, WILL MONITOR FOR CHANGES
--- NOTE | 2019-02-11 03:00 | NUR ---
PT REASSESSMENT COMPLETED AT THIS TIME, NO CHANGES NOTED, VSS
--- NOTE | 2019-02-11 05:00 | NUR ---
PT RESTING WITH EYES CLOSED, RESP EVEN, NON LABORED. VSS AT THIS TIME WILL CONTINUE TO MONITOR
--- NOTE | 2019-02-11 08:24 | NUR ---
UP IN BED WATCHING TV AT THIS TIME. NO ACUTE DISITRESS NOTED. VSS. PT ALERT AND ORIENTED. CALL LIGHT IN REACH. WILL CONTINUE PLAN OF CARE.
--- NOTE | 2019-02-11 09:48 | NUR ---
CHG BATH GIVEN. ALSO CONTINENT LARGE BOWEL MOVEMENT NOTED, LOOSE BROWN. KIMI CARE PROVIDED. PT UP IN CHAIR EATING BREAKFAST. WILL CONTINUE PLAN OF CARE.
--- NOTE | 2019-02-11 09:57 | NUR ---
CHEST TUBE DRESSING TO LT CHEST CHANGED AT TIMES PER ORDERS USING IODINE. NO REDNESS OR DRAINAGE NOTED TO SITE. VSS. WILL CONTINUE PLAN OF CARE.
--- NOTE | 2019-02-11 11:13 | NUR ---
UP IN CHAIR WATCHING TV. DENIES ANY NEEDS. VSS. WILL CONTINUE PLAN OF CARE.
--- NOTE | 2019-02-11 13:15 | NUR ---
UP IN CHAIR VISITING WITH FAMILY AT THIS TIME. NO ACUTE DISTRESS NOTED. VSS. PRODUCTIVE COUGH NOTED AT TIMES, THICK HONG COLORED. PT ALSO USES INCENTIVE SPIROMETER DIRECTED, ATTEMPTS NOTED AT 1750. VSS. WILL CONTINUE PLAN OF CARE.
--- NOTE | 2019-02-11 13:35 | NUR ---
NO ACUTE DISTRESS NOTED. NO CHANGE. VSS. CALL LIGHT IN REACH. WILL CONTINUE PLAN OF CARE.
--- NOTE | 2019-02-11 15:51 | NUR ---
VISING WITH FAMILY AT THIS TIME. NO ACUTE DISTRESS NOTED. VSS. CALL LIGHT IN REACH. PT DENIES ANY NEEDS. UP IN CHAIR. WILL CONTINUE PLAN OF CARE.
--- NOTE | 2019-02-11 17:22 | NUR ---
VSS. UP IN BED WATCHING TV WITH FAMILY. DENIES ANY NEEDS. USES INCENTIVE SPIROMETER DIRECTED NO ACUTE DISTRESS NOTED. PT ALERT AND ORIENTED SITTING UP IN BED EATING SUPPER INDEPENDENTLY. WILL CONTINUE PLAN OF CARE.
--- NOTE | 2019-02-11 19:00 | NUR ---
PT SITTING IN RECLINER UPON SHIFT CHANGE. OXYGEN ON AT 5L PER NC. ASSITED BACK TO BED. CL IN REACH. BED LOW POSITION. SCD'S PUT ON. CHEST TUBE CONNECTED TO SUCTION, AIR LEAK NOTED. MOVING AIR WELL WITH COUGH
--- NOTE | 2019-02-11 21:00 | NUR ---
PT 2100 MEDS GIVEN. RESTING COMFORTABLY. HAD PT REPOSITION TO RIGHT SIDE. PT TOLERATED MEDS WELL. NO SWALLOWING DIFFICULTY
--- NOTE | 2019-02-11 22:00 | NUR ---
COUGH AND DEEP BREATHING. PULSE OX READJUSTED, WAS NOT READING CORRECT O2 SAT OF 96
--- NOTE | 2019-02-11 23:06 | NUR ---
NO S/S OF PAIN. CL IN REACH.
[2019-02-12] VITALS (24 sets, daily range): BP systolic 107–128; BP diastolic 53–89
--- NOTE | 2019-02-12 | NUR ---
PT HAS PRODUCTIVE COUGH. CL IN REACH.
--- NOTE | 2019-02-12 01:11 | NUR ---
PT DENIES NEEDS. CL IN REACH. BLP
--- NOTE | 2019-02-12 01:39 | NUR ---
02/11/19 2300 REASSESSMET DOCUMENTED UNDER INTIAL SHIFT ASSESSMENT
--- NOTE | 2019-02-12 03:00 | NUR ---
PT ASLEEP. REPOSITIONING SELF. NOW ON BACK. PRODUCTIVE COUGH
[2019-02-12 05:36] LABS: HEMATOCRIT 28.7 % (42.0-54.0); HEMOGLOBIN 9.5 g/dL (13.5-17.5); MCH 30.1 pg (26.0-34.0); MCHC 33.1 g/dL (31.0-37.0); MCV 90.8 fL (80.0-100.0); MEAN PLATELET VOLUME 10.3 fL (7.4-10.4); RBC 3.16 10x6/uL (4.20-6.10); RDW 13.7 % (11.5-14.5); WBC 12.6 10x3/uL (4.8-10.8)
--- NOTE | 2019-02-12 05:53 | NUR ---
PT ASSISTED TO BEDSIDE COMMODE AFTER BLOOD DRAW FROM CL FOLLOWING POLICY. MEDIUM SOFT BM. PT SOB WITH EXERTION.
[2019-02-12 05:58] LABS: CALC OSMOLALITY 281 mosm/kg (275-300); CALCIUM 8.1 mg/dL (8.5-10.1); CARBON DIOXIDE 30.4 mmol/L (21.0-32.0); CHLORIDE - SERUM 103 mmol/L (98-107); GLUCOSE 115 mg/dL (74-106); POTASSIUM - SERUM 4.1 mmol/L (3.5-5.1); SODIUM 139 mmol/L (136-145); UREA NITROGEN 20 mg/dL (7-18); eGFR NON AFRICAN AMERICAN 78 mL/min (90-120)
--- NOTE | 2019-02-12 07:28 | NUR ---
LYING IN BED RESTING WITH EYES CLOSED. RESPIRATIONS STEADY AND UNLABORED. NO ACUTE DISTERSS NOTED. VSS. CALL LIGHT IN REACH. AWAKENS EASILY WHEN SPOKEN TO. PT DENIES ANY NEEDS. WILL CONTINUE PLAN OF CARE.
--- NOTE | 2019-02-12 09:20 | NUR ---
DRESSING CHANGED TO LT CHEST TUBE SITE AT THIS TIME PER ORDERS. SITE NOTED WITHOUT REDNESS OR DRINAGE. CLEANED WITH IODINE. NO ACUTE DISTRESS NOTED. VSS. WILL CONTINUE PLAN OF CARE.
--- NOTE | 2019-02-12 10:05 | NUR ---
CHG BATH GIVEN AT THIS TIME. TOTAL LINEN CHANGE PROVIDED. PT UP IN CHAIR WORKING WITH PHYSICAL THERAPY. HAS SHORTNESS OF BREATH ON EXERTION, TAKES A FEW MINUTES BEFORE HE IS NO LONGER OUT OF BREATH, DURING THESE EVENTS HE REQUIRES MULTIPLE BREAKS AND WILL HAVE A DECREASE IN OXYGEN SATURATION TO LOWER 90S. DID NOT DESAT IN TO 80S. CURRENLY ON 5L HIGH FLOW NC. VSS. WILL CONTINUE PLAN OF CARE.
--- NOTE | 2019-02-12 11:09 | NUR ---
UP IN CHAIR WATCHING TV AT THIS TIME. NO ACUTE DISTERSS NOTED. VSS. WILL CONTINUE PLAN OF CARE.
--- NOTE | 2019-02-12 13:42 | NUR ---
NO ACUTE DISTRESS NOTED. UP IN CHAIR VISITING WITH FAMILY. CALL LIGHT IN REACH. WILL CONTINUE PLAN OF CARE.
--- NOTE | 2019-02-12 15:24 | NUR ---
NO ACUTE DISTRESS NOTED. NO CHANGE. VSS. UP IN CHAIR VISITING WITH . WILL CONTINUE PLAN OF CARE.
--- NOTE | 2019-02-12 17:27 | NUR ---
UP IN CHAIR VISITING WITH . NO ACUTE DISTRESS NOTED. VSS. WILL CONTINUE PLAN OF CARE.
--- NOTE | 2019-02-12 18:54 | NUR ---
RESPIRATORY IN ROOM WITH PT. ALERT AND ORIENTED. SITTING UP IN CHAIR.
--- NOTE | 2019-02-12 19:40 | NUR ---
PT REFUSED BATH. STATED HE HAS ALREADY HAD ONE TODAY. TOLD HIM I WOULD ASK AGAIN IN THE MORNING
--- NOTE | 2019-02-12 21:45 | NUR ---
PT IN BED WITH SCD'S ON. ASLEEP. NO S/S OF DISTRESS. CL IN REACH. BLP
--- NOTE | 2019-02-12 23:11 | NUR ---
PT REPORTS BEING UNCOMFORTABLE AND SORE ALL OVER. REPOSITIONED IN BED. CL IN REACH. BLP.
[2019-02-13] VITALS (24 sets, daily range): BP systolic 108–140; BP diastolic 46–77
--- NOTE | 2019-02-13 01:52 | NUR ---
PT ASLEEP. CL IN REACH. BLP. AWAKE TO VOICE. ASSISTED PT WITH REPOSITIONING
--- NOTE | 2019-02-13 03:00 | NUR ---
PT ASLEEP. VS WNL. CL IN REACH. BLP. NO S/S OF DISTRESS. WILL CONTINUE TO MONITOR. CHEST TUBE TO SUCTION
--- NOTE | 2019-02-13 05:00 | NUR ---
pt washed with bathing wipes. does not want full bath. deep breathing with good cough. productive with clear mucous
[2019-02-13 05:47] LABS: BASOPHILS 0.3 % (0-2); EOSINOPHILS 7.2 % (0-7); HEMOGLOBIN 9.6 g/dL (13.5-17.5); IMMATURE GRANULOCYTES 1.7 % (0-5); LYMPHOCYTES 12.4 % (15-50); MCH 30.2 pg (26.0-34.0); MCHC 33.1 g/dL (31.0-37.0); MCV 91.2 fL (80.0-100.0); MEAN PLATELET VOLUME 10.4 fL (7.4-10.4); MONOCYTES 11.1 % (2-11); NEUTROPHILS 67.3 % (40-80); PLATELET COUNT 358 10x3/uL (130-400); RBC 3.18 10x6/uL (4.20-6.10); RDW 13.7 % (11.5-14.5); WBC 11.7 10x3/uL (4.8-10.8)
[2019-02-13 05:59] LABS: CALC OSMOLALITY 282 mosm/kg (275-300); CALCIUM 8.1 mg/dL (8.5-10.1); CARBON DIOXIDE 29.6 mmol/L (21.0-32.0); CHLORIDE - SERUM 105 mmol/L (98-107); CREATININE - SERUM 0.8 mg/dL (0.6-1.3); GLUCOSE 106 mg/dL (74-106); POTASSIUM - SERUM 4.4 mmol/L (3.5-5.1); SODIUM 140 mmol/L (136-145); UREA NITROGEN 23 mg/dL (7-18); eGFR NON AFRICAN AMERICAN > 90 mL/min (90-120)
--- NOTE | 2019-02-13 06:21 | NUR ---
PT RECEIVING UPDRAFT PER RESIRATORY. NO S/S OF DISTRESS. CL IN REACH
--- NOTE | 2019-02-13 07:43 | NUR ---
AM ASSESS. COMPLETED. PT SITTING UP IN BED EATING BREAKFAST. NO DISTRESS NOTED. CL IN REACH.
--- NOTE | 2019-02-13 08:31 | NUR ---
Nutrition follow-up: Diet: Dental soft with chopped meats PO intake ~50% of meals Labs reviewed Wt: 159# CT to suction PO intake fair at this time RDN following.
--- NOTE | 2019-02-13 09:48 | NUR ---
0800 PT AAO. NO DISTRESS. V/S/S. L CHEST TUBE PRESENT BUBBLING AT 20CM SUCTION. SEROUS DRAINAGE NOTED. DRESSING TO L CHEST CDI. AIR LEAK NOTED. MD AWARE. O2 AT 5L HF. SAT 91-98%. CL IN REACH. WILL CONT. TO MONITOR. DR. JOHN HERE SEEING PT. AT BEDSIDE.
--- NOTE | 2019-02-13 12:00 | NUR ---
RECIEVED PT UP IN CHAIR ALERT AND ORIENTED O2 NC SUBCLAVIAN CVL DRESSING CDI, L CT TO 20CM SUCTION AIR LEAK PRESENT, SERVED LUNCH TRAY AND COFFEE
--- NOTE | 2019-02-13 14:04 | NUR ---
PT ATE 75% LUNCH AND DRANK ENSURE, DENIES ALL NEEDS
--- NOTE | 2019-02-13 18:22 | NUR ---
1630 DINNER TRAY SERVED 1730 ATE 50% DINNER 1800 ASSISTED TO BSC FOR BM THEN ASSISTED TO BED
--- NOTE | 2019-02-13 19:00 | NUR ---
REPORT RECEIVED FROM DAY SHIFT RN, SHIFT ASSESSMENT COMPLETE SEE FLOW SHEET, PT AAOx4, DENIES PAIN AT THIS TIME, LEFT SUBCLAVIAN CVL SL, DRSG'S C/D/I, LEFT CHEST TUBE TO SUCTION, AIR LEAK NOTED, DRSG'S C/D/I, LEFT UPPER BACK INCISION SITE DRSG C/D/I, TCDB COMPLETED, ON 5L/MIN O2 VIA HIGH FLOW NC, BLE SCD AND APOLINAR NORTON, PPP, VSS, WILL CONTINUE TO MONITOR
--- NOTE | 2019-02-13 23:00 | NUR ---
REASSESSMENT COMPLETE SEE FLOW SHEET FOR FURTHER, NO ACUTE CHANGES NOTED FROM PRIOR ASSESSMENT, ALL DRSG'S C/D/I, CTx1 TO SUCTION WITH AIR LEAK NOTED, REPOSITIONED FOR COMFORT, VSS, WILL CONTINUE TO MONITOR
[2019-02-14] VITALS (24 sets, daily range): BP systolic 102–149; BP diastolic 49–89
--- NOTE | 2019-02-14 04:00 | NUR ---
PT RESTING COMFORTABLY IN BED, DENIES PAIN OR NEEDS AT THIS TIME, I/O'S COLLECTED, VSS, WILL CONTINUE TO MONITOR
[2019-02-14 06:14] LABS: CALC OSMOLALITY 279 mosm/kg (275-300); CALCIUM 8.3 mg/dL (8.5-10.1); CARBON DIOXIDE 30.1 mmol/L (21.0-32.0); CHLORIDE - SERUM 103 mmol/L (98-107); CREATININE - SERUM 0.9 mg/dL (0.6-1.3); GLUCOSE 95 mg/dL (74-106); POTASSIUM - SERUM 4.1 mmol/L (3.5-5.1); SODIUM 138 mmol/L (136-145); UREA NITROGEN 23 mg/dL (7-18); eGFR NON AFRICAN AMERICAN 88 mL/min (90-120)
--- NOTE | 2019-02-14 07:00 | NUR ---
RECEIVED BEDSIDE REPORT ON PATIENT AND ASSUMED CARE OF PATIENT. PATIENT ALERT AND ORIENTED X 4. VSS. BBS WITH EXPIRATORY WHEEZES NOTED ON O2 AT 5 LPM VIA NC WITH SPO2% - 98%. CM - NSR RATE OF 88. LEFT CHEST TUBE WITH SMALL AIRL LEAK NOTED WITH SEROUS FLUID OUTPUT. LEFT SUBCLAVIAN CVL, NSL, DRESSING C/D/I. HEAD TO TOE ASSESSMENT COMPLETED.
[2019-02-14 07:06] LABS: HEMOGLOBIN 9.6 g/dL (13.5-17.5); MCH 30.2 pg (26.0-34.0); MCHC 33.1 g/dL (31.0-37.0); MCV 91.2 fL (80.0-100.0); MEAN PLATELET VOLUME 10.8 fL (7.4-10.4); RBC 3.18 10x6/uL (4.20-6.10); RDW 13.7 % (11.5-14.5)
--- NOTE | 2019-02-14 07:25 | NUR ---
ASSISTED PT OOB TO CHAIR WITH MINIMAL ASSIST, PT HAS PRODUCTIVE COUGH WITH THICK HONG SPUTUM, PT VSS, REPORT GIVEN TO DAY SHIFT RN
--- NOTE | 2019-02-14 08:04 | NUR ---
PATIENT GIVEN BREAKFAST TRAY, UP IN BEDSIDE CHAIR, VSS. MORNING MEDS GIVEN PER JUL.
--- NOTE | 2019-02-14 08:33 | NUR ---
PATIENT ATE APPROXIMATELY 60% OF BREAKFAST. VISTOR AT BEDSIDE, VSS. NO NEEDS AT THIS TIME.
--- NOTE | 2019-02-14 09:12 | NUR ---
PATIENT SITTING UP IN BEDSIDE CHAIR, WATCHING TV. NO NEEDS AT THIS TIME. VSS. CVL FLUSHED.
--- NOTE | 2019-02-14 10:07 | OP ---
PATIENT NAME: XIMENA MANZANO MEDICAL RECORD: [id number] :43 LOCATION:.[facility] D.2311 ADMISSION DATE:01/29/19 SURGEON: BOOM PATE MD DATE OF OPERATION: 01/30/2019 PREOPERATIVE DIAGNOSES: 1. Left spontaneous pneumothorax. 2. Chronic obstructive pulmonary disease. POSTOPERATIVE DIAGNOSES: 1. Left spontaneous pneumothorax. 2. Chronic obstructive pulmonary disease. PROCEDURE: A 20-Ghanaian left chest tube placement. SURGEON: Boom Pate MD REPORT OF PROCEDURE: The patient's left chest was prepped and draped in sterile fashion. A 15 mL of 1% lidocaine with epinephrine was infused into the surrounding tissues. A skin incision was made on the left lateral chest at about the eighth intercostal space. Using sharp dissection, we dissected over top of the rib and I opened up into the patient's thoracic cavity. A 20-Ghanaian chest tube was inserted and there was immediately a return of air. The chest tube was sutured into place with 2-0 nylon and dressed appropriately. COMPLICATIONS: None. CONDITION: Stable. ANESTHESIA: Local. BLOOD LOSS: Minimal. Procedure done at the bedside. TRANSINT:[id number] Voice Confirmation ID: [id number] DOCUMENT ID: [id number] BOOM PATE MD at 1007 CC: [id number] DICTATION DATE: 02/03/19 1426 WEDDING CAKE DESIGNER: 02/03/19 1447 ADM IN [place] [id number] [place] [address]
--- NOTE | 2019-02-14 11:00 | NUR ---
REASSESSMENT COMPLETED. VSS. 20 CC SEROUS FLUID OUTPUT FROM LEFT CHEST TUBE.
--- NOTE | 2019-02-14 11:33 | NUR ---
PATIENT GIVEN LUNCH TRAY.
--- NOTE | 2019-02-14 11:35 | NUR ---
Rehab Note- Acute Inpatient Rehab prescreen order received. The patient seems to be a good inpatient rehab candidate. Will continue to follow the patient at this time. The patient is ambulating with PT is on 5L/NC and is desaturating into the 80s. Will plan to accept the patient to [facility] Inpatient Acute Rehab if the patient is in agreeance when medically stable and ready for discharge from the acute hospital. Thank you for this referral! Susu Brandt RN Clinical Liaison, [facility] Rehab
--- NOTE | 2019-02-14 12:05 | NUR ---
PATIENT ATE 50% OF LUNCH.
--- NOTE | 2019-02-14 13:40 | NUR ---
PATIENT MOVED FROM ROOM 2311 TO ROOM CVICU 05. VSS.
--- NOTE | 2019-02-14 15:00 | NUR ---
REASSESSMENT COMPLETE. DR. GORDON AT ROOM UPDATED AND EXAMINES PATIENT. PLACES IN LINE FLUTTER VALVE TO CHEST TUBE AND NO TO H2O SUCTION ONLY. DRESSING CHANGED. SUBCUTANEOUS AIR PRESENT TO LEFT PECTORAL AREA. VSS. PATIENT MOVED TO BED PRIOR TO CHANGING CHEST TUBE DRESSING. SPO2% DECREASED TO 77% WITH EXERTION BUT RECOVERED ONCE BACK IN BED.
--- NOTE | 2019-02-14 17:23 | NUR ---
PATIENT GIVEN DINNER TRAY, VSS.
--- NOTE | 2019-02-14 18:12 | NUR ---
PATIENT ATE APPROXIMATELY 50% OF DINNER TRAY. VOIDS 15O CC YELLOW URINE TO URINAL. VSS.
--- NOTE | 2019-02-14 19:07 | NUR ---
REPORT RECEIVED. PT IN BED WITH EYES OPEN WATCHING TV. NO S/S OF DISTRESS. NO NEEDS MADE KNOWN. CALL LIGHT IN REACH. WILL CONTINUE TO OBSERVE.
--- NOTE | 2019-02-14 21:03 | NUR ---
PT TRANSFERS TO BEDSIDE COMMODE WITH STANDBY ASSIST. MURSE SECURED CHEST TUBE AND OTHER LINES FROM BEING PULLED. PT WITH MEDIUM BROWN SOFT FORMED BM. PERICARE PROVIDED. PT IN BED. SPO2 DROPPED WITH TRANSFER WITH O2 INCREASED TO 9LPM FROM 5LPM VIA HIGH FLOW N/C. ONCE BACK IN BED AND CALM O2 DECREASED BACK TO 5LPM, TOLERATING WELL AT THIS TIME. WILL CONTINUE TO OBSERVE.
--- NOTE | 2019-02-14 23:26 | NUR ---
REASSESSMENT COMPLETED, SEE FLOW SHEET. NO CHANGES NOTED. WILL CONTINUE TO OBSERVE.
[2019-02-15] VITALS (15 sets, daily range): BP systolic 101–131; BP diastolic 54–90
--- NOTE | 2019-02-15 01:19 | NUR ---
PT RESTING WITH EYES CLOSED AND CHEST RISING. NO S/S OF DISTRESS. CALL LIGHT IN REACH. WILL CONTINUE TO OBSERVE.
--- NOTE | 2019-02-15 03:36 | NUR ---
REASSESSMENT COMPLETED, SEE FLOW SHEET. CALL LIGHT IN REACH. WILL CONTINUE TO OBSERVE.
[2019-02-15 05:42] LABS: HEMATOCRIT 31.5 % (42.0-54.0); HEMOGLOBIN 10.3 g/dL (13.5-17.5); MCH 29.8 pg (26.0-34.0); MCHC 32.7 g/dL (31.0-37.0); MEAN PLATELET VOLUME 10.2 fL (7.4-10.4); RBC 3.46 10x6/uL (4.20-6.10); RDW 13.7 % (11.5-14.5); WBC 11.1 10x3/uL (4.8-10.8)
[2019-02-15 06:04] LABS: CALC OSMOLALITY 279 mosm/kg (275-300); CALCIUM 8.2 mg/dL (8.5-10.1); CARBON DIOXIDE 30.1 mmol/L (21.0-32.0); CHLORIDE - SERUM 102 mmol/L (98-107); CREATININE - SERUM 0.8 mg/dL (0.6-1.3); GLUCOSE 105 mg/dL (74-106); SODIUM 138 mmol/L (136-145); UREA NITROGEN 25 mg/dL (7-18); eGFR NON AFRICAN AMERICAN > 90 mL/min (90-120)
--- NOTE | 2019-02-15 07:00 | NUR ---
RECEIVED BEDSIDE ON PATIENT AND ASSUMED CARE OF PATIENT. VSS. SITTING IN BEDSIDE CHAIR, ALERT AND ORIENTED X 4. BBS - CLEAR, DIMINISHED IN BASES, LEFT CHEST TUBE TO WATER SEAL WITH AIR LEAK PRESENT, DRESSING CLEAN/DRY AND INTACT. CM - NSR RATE 82. SUBCUTANEOUS AIR PRESENT TO LEFT PECTORAL AREA. LEFT SUBCLAVIAN CVL WITH DRESSING CLEAN, DRY AND INTACT, EASILY FLUSHES WITH POSITIVE BLOOD RETURN PRESENT. HEAD TO TOE ASSESSMENT COMPLETED. SPO2 - 99% ON 5 LPM VIA NC.
--- NOTE | 2019-02-15 07:15 | NUR ---
CVL DRESSING CHANGED PER PROTOCOL. TOLERATED WELL. CHG BATH GIVEN WITH COMPLETE LINEN CHANGE. PT UP IN CHAIR AT BEDSIDE. CALL LIGHT IN REACH. WILL CONTINUE TO OBSERVE.
--- NOTE | 2019-02-15 07:46 | NUR ---
PATIENT GIVEN BREAKFAST TRAY.
--- NOTE | 2019-02-15 08:24 | NUR ---
DR. JARVIS AT ROOM UPDATED AND EXAMINES PATIENT. PATIENT GIVEN MORNING MEDS PER MAR. ATE APPROXIMATELY 70% OF BREAKFAST. VSS.
--- NOTE | 2019-02-15 09:19 | NUR ---
PATIENT SITTING UP IN BEDSIDE CHAIR, VSS. GIVEN CUP OF COFFEE PER REQUEST.
--- NOTE | 2019-02-15 09:41 | NUR ---
SPUTUM CULTURE COLLECTED AND SENT TO LAB.
--- NOTE | 2019-02-15 10:55 | NUR ---
REASSESSMENT COMPLETE. VSS. PATIENT WATCHING TV IN BEDSIDE CHAIR. NO NEEDS AT THIS TIME.
--- NOTE | 2019-02-15 11:12 | NUR ---
Nutrition Follow-up: Pt reports appetite continues to improve. Likes Ensure. Diet: Cardiac, Dental Soft, Ensure with meals PO intake: 59% avg x 6 meals Wt: 169# Last BM: 02/14 Labs reviewed Meds reviewed Continue current diet as tolerated. RD following.
--- NOTE | 2019-02-15 12:12 | NUR ---
PATIENT GIVEN LUNCH TRAY. VSS.
--- NOTE | 2019-02-15 12:43 | NUR ---
CHEST TUBE DRESSING CHANGED, INCISION AREA CLEANED WITH BETADINE. OCCLUSIVE DRESSING PLACED.
--- NOTE | 2019-02-15 12:54 | NUR ---
DR. PRESLEY AT ROOM UPATED AND EXAMINES PATIENT.
--- NOTE | 2019-02-15 13:01 | NUR ---
PER DR. PRESLEY OK TO TRANSFER TO REHAB TODAY ONCE CLARIFIED IF REHAB IS ABLE TO TAKE A CHEST TUBE TO H2O SEAL WITH HIEMLICH VALVE IN PLACE. CALLED REHAB TO DETERMINE ANSWER AWAITING CALL BACK.
--- NOTE | 2019-02-15 13:11 | NUR ---
SPOKE TO ANANYA WITH REHAB WHO ADVISED THAT THEY ARE UNABLE TO TAKE THE PATIENT WHILE HE HAS A CHEST TUBE TO WATER SEAL.
--- NOTE | 2019-02-15 13:50 | NUR ---
DR. GORDON AT ROOM, UPDATED AND EXAMINES PATIENT. BABITA DUKE REMOVES H2O SEAL PLEUR VAC AND ATTACHES DRAIN BAG TO HIEMLICH VALVE.
--- NOTE | 2019-02-15 14:38 | NUR ---
OT NOTE: PT COMPLETED SIT TO STAND WITH MIN A/CGA. PT COMPLETED WT SHIFT WITH MIN A. PT COMPLETED FACE WASH WITH SET UP. THANK YOU, ANTONY MCCAULEY
--- NOTE | 2019-02-15 15:14 | NUR ---
REASSESSMENT COMPLETE. VSS. SITTIN UP IN BEDSIDE CHAIR, WATCHING TV. NO NEEDS AT THIS TIME.
--- NOTE | 2019-02-15 16:33 | NUR ---
PATIENT VISITING WITH , VSS. GIVEN DINNER TRAY.
--- NOTE | 2019-02-15 17:20 | NUR ---
REPORT CALLED TO [facility] AND GIVEN TO NIKKI DUKE. PATIENT TO TRANSFER TO ROOM 1118A.
[2019-02-15] MEDS ORDERED: PROTONIX40 MG PO (17:30)
[2019-02-15] MEDS ORDERED: ZOFRAN4 MG PO (17:34)
[2019-02-15] MEDS ORDERED: COLACE100 MG PO (17:34)
[2019-02-15] MEDS ORDERED: MUCINEX DM ER1 EAC1 PO (17:35)
[2019-02-15] MEDS ORDERED: TESSALON PERLE100 MG PO (17:35)
[2019-02-15] MEDS ORDERED: PULMICORT0.5 MG/21 INH (17:35)
[2019-02-15] MEDS ORDERED: LOPRESSOR25 MG PO (17:36)
[2019-02-15] MEDS ORDERED: HYDROCODON-ACE1 EAC7 PO (17:36)
[2019-02-15] MEDS ORDERED: FLOMAX0.4 MG PO (17:36)
[2019-02-15] MEDS ORDERED: FERROUS SULFAT325 MG PO (17:36)
[2019-02-15] MEDS ORDERED: XOPENEX 0.0.63 MG/3 UPD (17:37)
[2019-02-15] MEDS ORDERED: BROVANA15 MCG/2 M INH (17:37)
[2019-02-15] MEDS ORDERED: ATROVENT 0.02%2.5 ML UPD (17:37)
--- NOTE | 2019-02-15 18:23 | NUR ---
DISCHARGED TO [facility]PATIENT REH[facility], TRANSPORTED WITH BELONGINGS AND PORTABLE O2 VIA WHEELCHAIR.
--- NOTE | 2019-02-15 18:54 | MORECARE ---
CASE MANAGEMENT DISCHARGE SUMMARY PATIENT: XIMENA MANZANO UNIT: [id number] ADM DATE: 01/29/19 AGE: 73 : [birth year] SEX: M ROOM/BED: [facility] AUTHOR: MULUGETA HENRY PHYSICIAN: REFERRING PHYSICIAN: GWENDOLYN PRESLEY MD DATE OF SERVICE: 02/15/19 Discharge Plan Patient Name: XIMENA MANZANO Facility: [facility]:[place] : 1945 Planned Disposition: Inpatient Rehab Anticipated Discharge Date: 02/05/19 Discharge Date: 02/15/2019 Expected LOS: 7 Initial Reviewer: [email or web address] Initial Review Date: 01/29/2019 Generated: 02/15/19 7:53 pm Comments DCP- Discharge Planning Updated by [email or web address]: Monica Barry on 02/15/19 5:[address] Patient Name: XIMENA MANZANO Encounter No: [id number] : 1945 Primary Insurance: MEDICARE A & B Anticipated DC Date: 02-05-2019 Planned Disposition: Inpatient Rehab External Planned Provider: : Lala WARREN 02/15/19 @ 1536 DCP follow-up note: Patient and family in agreement with discharge plan. No changes to plan. Case management will follow and assist as needed. Monicakehinde Barry DCP- Discharge Planning Updated by [id number]: Anabella Dickey on 01/31/19 12:[address] Patient Name: XIMENA MANZANO Admission Status: ER Accout number: [id number] Admission Date: 01-29-2019 : 1945 Admission Diagnosis: Attending: GWENDOLYN PRESLEY Current LOS: 2 Anticipated DC Date: Planned Disposition: Inpatient Rehab Primary Insurance: MEDICARE A & B Discharge Planning Comments: CM met with patient to complete initial dc planning assessment. CM educated patient on the CM role and verbal consent given by patient to complete assessment. Patient lives at home with is where he is independent with his care, but has been having issues with walking per his . At discharge patient plans to return home and feels this is a safe discharge. CM discussed availability of home health, rehab services, and medical equipment. He has home O2 that he wears 24/7 from [facility] in [place] (NNAMDI signed for DME) His stated that he needs a walker with a chair, because he has been trouble before he was in the hospital. They discussed inpatient rehab when he is stable to DC & both thought it would be a good idea when able. Patient denied any other known discharge needs at this time. CM will continue to follow and will assist as needed with dc plans/needs. Retail Business Analyst: Anabella Dickey DCPIA - Discharge Planning Initial Assessment Updated by [id number]: Anabella Dickey on 01/31/19 1:38 pm * Is the patient Alert and Oriented? Yes * How many steps to enter\exit or inside your home? * PCP MAURITIAN * [facility] [facility] [place] * Preadmission Environment Home with Family * ADLs Independent * Equipment Oxygen * List name and contact numbers for known caregivers / representatives who currently or will assist patient after discharge: RODNEY NATACHA [phone] * Verbal permission to speak to the caregivers and representatives has been obtained from the patient. Yes * Community resources currently utilized None * Additional services required to return to the preadmission environment? Yes * Has this patient been hospitalized within the prior 30 days at any hospital? No Coverage Notice Reviewer: [id number] - Anabella Dickey Notice Issued Date-Time: 01/31/2019 13:35 Notice Type: Patient Choice Letter Notice Delivered To: Patient Relationship to Patient: Winch Stripper Name: Delivery Method: HAND - Hand Delivered Vane Days: Prior Verbal Notification: Recipient Understood Notice: Yes Recipient Signature: Yes Med Rec Note Co-signed by Attending: Coverage Notice Comment[facility] [place] Reviewer: [id number] Damien Barry Notice Issued Date-Time: 02/15/2019 15:36 Notice Type: IM Discharge Notice Notice Delivered To: Patient Relationship to Patient: Self Winch Stripper Name: Delivery Method: HAND - Hand Delivered Vane Days: Prior Verbal Notification: Recipient Understood Notice: Yes Recipient Signature: Yes Med Rec Note Co-signed by Attending: Coverage Notice Comment: Last DP export: 02/05/19 4:51 pm Patient Name: XIMENA MANZANO Page [id number] at 1854 All edits/amendments must be made on the electronic document DICTATION DATE: 02/15/19 317 HEATER ROOM HELPER: HANG 02/15/191852 RPT#: [id number] DC DATE:02/15/19 STATUS: DIS IN [place] [address] [place] [address] END OF REPORT
== END 2019-02-15 18:24 | DRG 163 ==
LOC: D.ER 19:31 → D.ICU 20:37 → D.MS 20:37 → D.CVICU 20:37 → D.ICU 22:36 → D.MS 01-30 14:45 → D.CVICU 02-06 08:51 → D.ICU 02-10 17:27 → D.CVICU 02-14 13:15
PROVIDERS: Emergency Medicine; Family Medicine; Internal Medicine Cardiovascular Disease; Thoracic Surgery (Cardiothoracic Vascular Surgery); ADMIT Family Medicine; ATTEND Family Medicine
PROC: 0W9B30Z Drainage of Left Pleural Cavity with Drainage Device, Percutaneous Approach (ICD-10-PCS; principal; 2019-01-30)
PROC: 0B5P4ZZ Destruction of Left Pleura, Percutaneous Endoscopic Approach (ICD-10-PCS; 2019-02-06)
PROC: 0BJ08ZZ Inspection of Tracheobronchial Tree, Via Natural or Artificial Opening Endoscopic (ICD-10-PCS; 2019-02-06)
PROC: 0BBJ0ZZ Excision of Left Lower Lung Lobe, Open Approach (ICD-10-PCS; 2019-02-06 07:30)
DX: J93.11 Primary spontaneous pneumothorax (principal); J96.21 Acute and chronic respiratory failure with hypoxia; G72.81 Critical illness myopathy; J98.11 Atelectasis; I48.91 Unspecified atrial fibrillation; I25.10 Atherosclerotic heart disease of native coronary artery without angina pectoris; Z87.891 Personal history of nicotine dependence; J43.9 Emphysema, unspecified; Z99.81 Dependence on supplemental oxygen; J84.10 Pulmonary fibrosis, unspecified; I48.0 Paroxysmal atrial fibrillation; N40.0 Benign prostatic hyperplasia without lower urinary tract symptoms; D64.9 Anemia, unspecified; K21.9 Gastro-esophageal reflux disease without esophagitis

== ENCOUNTER 2019-02-15 17:30 | Inpatient (IN) | payer MEDICARE, OTHER ==
[~2019-02-15] VITALS: Ht 177.8 cm; Wt 76.2 kg
[~2019-02-15 17:30] MED LIST changes: +ALBUTEROL SULF8.5 GM INH; +METOPROLOL TART25 MG PO; +PROTONIX40 MG PO; +SINGULAIR10 MG PO; +SPIRIVA18 MCG INH; +SYMBICORT 16010.2 GM INH
[2019-02-15] MEDS ORDERED: COLACE100 MG PO (17:34)
[2019-02-15] MEDS ORDERED: ZOFRAN4 MG PO (17:34)
[2019-02-15] MEDS ORDERED: PULMICORT0.5 MG/21 INH (17:35)
[2019-02-15] MEDS ORDERED: TESSALON PERLE100 MG PO (17:35)
[2019-02-15] MEDS ORDERED: MUCINEX DM ER1 EAC1 PO (17:35)
[2019-02-15] MEDS ORDERED: LOPRESSOR25 MG PO (17:36)
[2019-02-15] MEDS ORDERED: FLOMAX0.4 MG PO (17:36)
[2019-02-15] MEDS ORDERED: FERROUS SULFAT325 MG PO (17:36)
[2019-02-15] MEDS ORDERED: HYDROCODON-ACE1 EAC7 PO (17:36)
[2019-02-15] MEDS ORDERED: XOPENEX 0.0.63 MG/3 UPD (17:37)
[2019-02-15] MEDS ORDERED: BROVANA15 MCG/2 M INH (17:37)
[2019-02-15] MEDS ORDERED: ATROVENT 0.02%2.5 ML UPD (17:37)
--- NOTE | 2019-02-15 18:30 | NUR ---
RECEIVED PT TO FLOOR VIA W/C FROM CVICU ACCOMPAINIED BY HOSPITAL STAFF.
--- NOTE | 2019-02-15 19:25 | NUR ---
PT LYING IN BED. CL IN REACH. DENIES NEEDS AT THIS TIME. BED IN LOW SIDE RAILS X2. CHEST TUBE INTACT. A/O X4. RESP EVEN AND UNLABORED. O2 ON 4L VIA NC HIGH FLOW. ABOUT 5 ML OF DRAINAGE IN CHEST TUBE BAG. PT HAS OCCASIONAL PRODUCTIVE COUGH WITH CLEAR DRAINAGE. NO SKIN ISSUES. DRESSING TO CHEST TUBE C/D/I. WILL CONTINUE TO MONITOR.
--- NOTE | 2019-02-15 21:45 | NUR ---
PT COMPLAINED OF PAIN IN LEFT CHEST PAIN. PAIN PILL GIVEN. WCTM
[2019-02-15 21:59] VITALS: BP 124/53
[2019-02-15 22:05] VITALS: BP 124/53; BMI 24.1
--- NOTE | 2019-02-16 02:05 | NUR ---
I have reviewed this patient and I concur with the Shift Assessment completed by the Licensed Practical Nurse today this shift.
--- NOTE | 2019-02-16 05:45 | NUR ---
ASSISTED TO AND FROM BATHROOM. BM NOTED. PT BACK IN BED. CL IN REACH. CHEST TUBE INTACT. WCTM
[2019-02-16 06:44] LABS: CALC OSMOLALITY 279 mosm/kg (275-300); CALCIUM 8.5 mg/dL (8.5-10.1); CARBON DIOXIDE 30.5 mmol/L (21.0-32.0); CHLORIDE - SERUM 103 mmol/L (98-107); CREATININE - SERUM 0.8 mg/dL (0.6-1.3); GLUCOSE 103 mg/dL (74-106); POTASSIUM - SERUM 4.2 mmol/L (3.5-5.1); SODIUM 138 mmol/L (136-145); UREA NITROGEN 24 mg/dL (7-18); eGFR NON AFRICAN AMERICAN > 90 mL/min (90-120)
[2019-02-16 06:57] LABS: BASOPHILS 0.3 % (0-2); EOSINOPHILS 6.5 % (0-7); HEMATOCRIT 30.3 % (42.0-54.0); IMMATURE GRANULOCYTES 0.7 % (0-5); LYMPHOCYTES 12.3 % (15-50); MCH 29.9 pg (26.0-34.0); MCV 90.7 fL (80.0-100.0); MEAN PLATELET VOLUME 10.7 fL (7.4-10.4); MONOCYTES 10.6 % (2-11); NEUTROPHILS 69.6 % (40-80); PLATELET COUNT 376 10x3/uL (130-400); RBC 3.34 10x6/uL (4.20-6.10); RDW 13.8 % (11.5-14.5); WBC 10.8 10x3/uL (4.8-10.8)
[2019-02-16 08:00] VITALS: BP 117/67
[2019-02-16 09:39] VITALS: Ht 177.8 cm; Wt 76.2 kg
--- NOTE | 2019-02-16 16:35 | NUR ---
PATIENT ADMITTED TO REHAB FROM ACUTE FLOOR. PATIENT PCP IS DR. PRESLEY. PATIENT LIVE AT HOME WITH HIS SPOUSE AND WILL DISCHARGE THERE. DME AT HOME IS O2 WHICH IS PROVIDED BY [facility]. WILL CONTINUE TO FOLLOW WITH PATIENT AND WILL ASSIT WITH DISCHARGE NEEDS.
--- NOTE | 2019-02-16 19:29 | NUR ---
GREETED PATIENT AND INTRODUCED MYSELF. PATIENT IS LAYING IN BED IN SUPINE POSITION. RESPIRATIONS EVEN. NO S/S OF DISTRESS. O2 AT 4L VIA HIGH PRESSURE NC. DENIES ANY PAIN AT THIS TIME. NO FURTHER NEEDS. CALL LIGHT IN REACH.
[2019-02-16 20:34] VITALS: BP 111/57
[2019-02-17 08:36] VITALS: BP 137/62
--- NOTE | 2019-02-17 10:33 | RHP ---
PATIENT: XIMENA MANZANO MEDICAL RECORD: [id number] ACCOUNT: [id number] LOCATION:[facility]1118 : [birth year] ADMISSION DATE: 02/15/19 REHABILITATION HISTORY AND PHYSICAL EXAMINATION POST ADMISSION PHYSICIAN EXAMINATION DATE OF ADMISSION: 02/15/2019. ADMITTING DIAGNOSIS: Critical illness myopathy. HISTORY OF PRESENT ILLNESS: The patient is a 73-year-old gentleman who came to the ED for left chest pain. He heard a pop in his chest while he was coughing and increasing pain. 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 He was seen by general surgery, pulmonary, cardiology and cardiovascular surgery during his stay. He has had the chest tube that has been removed from water seal suction. He has a Heimlich valve chest tube now. He has been receiving OT and PT during his acute hospital stay and is very deconditioned, requiring an increased amount of oxygen. He has got a history of coronary artery disease status post PCI with stent placement times 8, last time that this occurred was back in 2012. He does have a history of chronic cough and O2 dependence, has severe COPD and tobacco use. On 02/01/2019, CT of the chest showed a small residual pneumothorax in the left anterior base adjacent to the chest thoracostomy tube with severe emphysema and fibrotic changes. He currently is on supplemental O2. He is on telemetry, has a Heimlich chest valve, leukocytosis, decreased H&H, hypoxia, deconditioning, debility, proximal muscle weakness, impaired mobility, gait disturbance. He is a fall risk and has self-care deficit. These are all barriers to his discharge home. He lives at home with his , was completely independent with mobility and ADLs. He is currently set up for max assist with his ADLs and mod assist with mobility with use of supplemental O2. He has been desatting at times into the 80s. He and his would like for him to return home at his prior level of functioning, after stay here in the rehabilitation. COMORBIDITIES: In this patient include severe bullous emphysema, left-sided chest pain, pneumothorax, COPD, coronary artery disease, BPH, constipation, critical illness myopathy, acute on chronic cough even on antitussives, coronary artery disease, chronic back pain, anemia, gastroesophageal reflux disease, tobacco use in the past, quit smoking in 2013, debility. PAST MEDICAL HISTORY: Consistent with dentures, stents, atrial fib, coronary artery disease, COPD, and tobacco use. PAST SURGICAL HISTORY: Includes angioplasty with stents. ALLERGIES: No known drug allergies. CURRENT MEDICATIONS: Include Flomax 0.4 mg daily, ferrous sulfate 325 mg daily, aspirin chewable 81 mg daily, Pulmicort 0.5 mg b.i.d., Atrovent updrafts 0.5 mg q.i.d., Brovana 15 mcg b.i.d., Xopenex p.r.n. wheezing, Protonix 40 mg daily, Singulair 10 mg q.h.s., Lopressor 12.5 mg b.i.d., Mucinex D 1 tab b.i.d., Colace 100 mg b.i.d., Tessalon Perles 100 mg t.i.d., Zofran 4 mg q.6 hours p.r.n., and [place] 5/325 one tab q.4 hours p.r.n. HISTORY AND PHYSICAL [id number] XIMENA MANZANO HABITS: Quit smoking in 2013. FAMILY HISTORY: Noncontributory. SOCIAL HISTORY: The patient hopes to return back home and get back to his prior level of functioning. REVIEW OF SYSTEMS: GENERAL: Does complain of weakness and fatigue. HEENT: Denies cold, cough, or congestion. CARDIOVASCULAR: Denies any chest pain. PHYSICAL EXAMINATION: VITAL SIGNS: Stable, afebrile. GENERAL: A well-developed gentleman in no acute distress, alert upon exam. HEENT: Normocephalic and atraumatic. Mucosa moist. NECK: Supple. No lymphadenopathy. LUNGS: Clear in upper duron. He does have a noted Heimlich valve. CARDIOVASCULAR: Regular rate and rhythm. No murmurs, rubs or gallops. ABDOMEN: Benign. EXTREMITIES: No clubbing, cyanosis or edema. NEUROLOGIC: He is intact mentally. He does have noted weakness. LABORATORY DATA: White count is 10.8, H&H of 10 and 30, and platelet count is noted to be 326. His sodium is 138, potassium 4.2, BUN and creatinine of 24 and 0.8, blood sugar is noted to be 103. ASSESSMENT: This is a 73-year-old gentleman admitted to the rehab with a working diagnosis of critical illness myopathy secondary to a longstanding pneumothorax. The patient has potential to make improvement. We instituted the following multidisciplinary therapies to include, but not limited to physical, occupational, respiratory, speech, nutritional services, prosthetics and orthotics. Given his complex medical condition and risks for more complications, rehabilitation services cannot be provided at a low level of care such as prison facility. PLAN: 1. Admit to [facility] rehab for an intensive inpatient therapy to include the following disciplines: A. Physical therapy to improve gait, all transfer skills and bed mobility to a modified independent level. B. Occupational therapy to improve activities of daily living to a modified independent level. C. Case management to assist with discharge planning and placement options. D. Nutrition to assist with nutritional needs. E. Rehabilitation nursing to assist in monitoring the patient's underlying medical conditions and to assist with any type of bowel or bladder management. 2. The patient's current medication and medical care will be continued. 3. The patient will be placed on standard fall precautions. 4. The patient's estimated length of stay is approximately 7-10 days. 5. We will discuss the patient during care team staff meeting this week. TRANSINT:[id number] Voice Confirmation ID: [id number] DOCUMENT ID: [id number] HISTORY AND PHYSICAL [id number] XIMENA MANZANO notes whether there has been none or any medical/functional change since admission: - No change since prescreen. GREY attests patient continues to be appropriate for IRF: - Continues to be appropriate. JUWAN BECERRA MD at 1033 CC: [id number] DICTATION DATE: 02/16/19 1158 BILLBOARD INSTALLER: 02/16/19 1214 ADM IN [facility] [address] [place] [address]
[2019-02-17 11:07] LABS: HEMATOCRIT 32.6 % (42.0-54.0); HEMOGLOBIN 10.5 g/dL (13.5-17.5); LYMPHOCYTES 8.6 % (15-50); MCH 30.2 pg (26.0-34.0); MCHC 32.2 g/dL (31.0-37.0); MEAN PLATELET VOLUME 10.4 fL (7.4-10.4); NEUTROPHILS 78.3 % (40-80); PLATELET COUNT 346 10x3/uL (130-400); RBC 3.48 10x6/uL (4.20-6.10); RDW 13.3 % (11.5-14.5); WBC 10.8 10x3/uL (4.8-10.8)
[2019-02-17 11:09] LABS: CALC OSMOLALITY 279 mosm/kg (275-300); CALCIUM 8.6 mg/dL (8.5-10.1); CARBON DIOXIDE 30.9 mmol/L (21.0-32.0); CHLORIDE - SERUM 99 mmol/L (98-107); GLUCOSE 129 mg/dL (74-106); SODIUM 137 mmol/L (136-145); UREA NITROGEN 24 mg/dL (7-18); eGFR NON AFRICAN AMERICAN 78 mL/min (90-120)
[2019-02-17 11:12] LABS: MCV 93.7 fL (80.0-100.0)
--- NOTE | 2019-02-17 14:48 | NUR ---
RESTING QUIETLY IN BED. DENIES NEEDS. CALL LIGHT IN REACH
[2019-02-17 18:29] VITALS: BP 125/64
--- NOTE | 2019-02-17 19:13 | NUR ---
GREETED PATIENT AND INTRODUCED MYSELF. PATIENT IS LAYING IN BED IN SUPINE POSITION. SON AT BEDSIDE VISITING. RESPIRATIONS EVEN. NO S/S OF DISTRESS. NO FURTHER NEEDS AT THIS TIME. CALL LIGHT IN REACH.
--- NOTE | 2019-02-18 03:52 | NUR ---
PT. RESTING QUIETLY WITH EYES CLOSED. RESPIRATIONS EVEN. NO S/S OF DISTRESS. HIGH O2 AT 4L VIA NC. RESPIRATIONS EVEN. NO S/S OF DISTRESS. CALL LIGHT IN REACH.
[2019-02-18 08:00] VITALS: BP 137/62
--- NOTE | 2019-02-18 08:00 | NUR ---
SHIFT ASSMT COMPLETED.DENIES NEEDS.CL IN REACH.CT TO BARR DRAIN BAG.
--- NOTE | 2019-02-18 12:00 | NUR ---
EATING LUNCH.DENIES NEEDS.
[2019-02-18 19:59] VITALS: BP 120/63
--- NOTE | 2019-02-19 01:50 | NUR ---
I have reviewed this patient and I concur with the Shift Assessment completed by the Licensed Practical Nurse today this shift.
--- NOTE | 2019-02-19 01:50 | NUR ---
I have reviewed this patient and I concur with the Shift Assessment completed by the Licensed Practical Nurse today this shift.
--- NOTE | 2019-02-19 03:37 | NUR ---
PATIENT SITTING UP IN WHEELCHAIR DRINKING PRUNE JUICE. CALL LIGHT WITHIN REACH. WILL CONTINUE TO MONITOR.
--- NOTE | 2019-02-19 08:00 | NUR ---
SHIFT ASSMT COMPLETED.
[2019-02-19 08:09] VITALS: BP 118/62
--- NOTE | 2019-02-19 12:00 | NUR ---
EATING LUNCH.NO RESULTS FROM LAXATIVE AT THIS TIME.
--- NOTE | 2019-02-19 16:00 | NUR ---
GHANSHYAM BREWER CHANGE.DENIES NEEDS.
[2019-02-19 19:59] VITALS: BP 136/68
--- NOTE | 2019-02-19 20:00 | NUR ---
PATIENT RECEIVED SITTING UP IN BED WATCHING TV. ASSESSMENT & VITAL SIGNS DONE. NO C/O PAIN OR DISTRESS. CHEST TUBE IN PLACE, MINIMAL DRAINAGE AT THIS TIME. 02@4LNC CONTINUES. FEET BRIDGED. SCD'S ON. BED LOW. CALL LIGHT WITHIN REACH. WILL CONTINUE TO MONITOR.
--- NOTE | 2019-02-20 01:22 | NUR ---
I have reviewed this patient and I concur with the Shift Assessment completed by the Licensed Practical Nurse today this shift.
--- NOTE | 2019-02-20 06:08 | NUR ---
PATIENT BLOOD DRAWN FROM CVL. PATIENT THEN TAKEN BY RADIOLOGY PERSON.
[2019-02-20 06:41] LABS: BASOPHILS 0.3 % (0-2); EOSINOPHILS 5.4 % (0-7); HEMOGLOBIN 9.7 g/dL (13.5-17.5); IMMATURE GRANULOCYTES 0.5 % (0-5); MCH 29.6 pg (26.0-34.0); MCHC 32.3 g/dL (31.0-37.0); MCV 91.5 fL (80.0-100.0); MONOCYTES 10.1 % (2-11); NEUTROPHILS 70.7 % (40-80); PLATELET COUNT 294 10x3/uL (130-400); RBC 3.28 10x6/uL (4.20-6.10); WBC 10.1 10x3/uL (4.8-10.8)
[2019-02-20 07:02] LABS: CALC OSMOLALITY 279 mosm/kg (275-300); CALCIUM 8.5 mg/dL (8.5-10.1); CARBON DIOXIDE 30.8 mmol/L (21.0-32.0); CHLORIDE - SERUM 103 mmol/L (98-107); CREATININE - SERUM 0.9 mg/dL (0.6-1.3); GLUCOSE 109 mg/dL (74-106); POTASSIUM - SERUM 4.6 mmol/L (3.5-5.1); SODIUM 138 mmol/L (136-145); UREA NITROGEN 21 mg/dL (7-18); eGFR NON AFRICAN AMERICAN 88 mL/min (90-120)
[2019-02-20 08:00] VITALS: BP 138/63
--- NOTE | 2019-02-20 15:02 | NUR ---
SITTING UP IN BED RESTING QUIETLY. DR GORDON AND NURSE BABITA ROUNDED ON PT RECENTLY. CHEST TUBE STILL DRAINING MINIMAL AMOUNT OF FLUID. HE DENIES PAIN OR INCREASED SOB. SIDE RAILS UP X2, BED IN LOWEST POSITION. CALL LIGHT IN REACH
--- NOTE | 2019-02-20 19:30 | NUR ---
PT LYING IN BED WATCHING TV. CL IN REACH. RESP EVEN AND UNLABORED. CHEST TUBE INTACT. BED IN LOW SIDE RAILS X2. A/O X4. WILL CONTINUE TO MONITOR.
[2019-02-20 21:47] VITALS: BP 121/63
--- NOTE | 2019-02-20 23:50 | NUR ---
PT COMPLAINED OF LEFT SIDE PAIN FROM CHEST TUBE. PAIN PILL GIVEN. DENIES FURTHER NEEDS. WCTM. CL IN REACH.
--- NOTE | 2019-02-21 01:43 | NUR ---
QUIET HOURS. PT LYING IN BED EYES CLOSED RESTING QUIETLY
--- NOTE | 2019-02-21 03:13 | NUR ---
PT RESTING QUIETLY. CL IN REACH. NO DISTRESS NOTED. WCTM
--- NOTE | 2019-02-21 04:16 | NUR ---
I have reviewed this patient and I concur with the Shift Assessment completed by the Licensed Practical Nurse today this shift.
--- NOTE | 2019-02-21 05:37 | NUR ---
WOKE PT TO ADMINISTER PROTONIX PT WOKE TO VERBAL STIMULI. NO PROBLEMS ADMINISTERING PILL. PT SITTING UP IN BED. CL IN REACH. DENIES NEEDS AT THIS TIME. CHEST TUBE INTACT. WCTM
--- NOTE | 2019-02-21 07:06 | NUR ---
RESTING QUIETLY IN BED. EYES CLOSED. NO S/S DISTRESS. BED IN LOWEST POSITION, SIDE RAILS UP X2. CALL LIGHT IN REACH
[2019-02-21 08:00] VITALS: BP 126/56
--- NOTE | 2019-02-21 12:41 | NUR ---
SITTING UP IN BED EATING LUNCH. HAS FAIR APPETITE. DENIES NAUSEA WITH MEALS. LEFT SIDE CHEST TUBE STILL IN PLACE DRAINING SMALL AMT OF FLUID. HE DENIES INCREASED SOB AND IS STILL WEARING 4LNC HIGH FLOW. USES URINAL. LEFT SIDE CVL DC'D PER ORDER AND CHEST TUBE DRESSING CHANGED. IN ROOM VISITING.
--- NOTE | 2019-02-21 14:10 | NUR ---
Nutrition Follow-up: Diet: Cardiac, dental soft + Ensure with meals PO intake: 46% average x 9 meals Pt reports that his appetite is improving. Has ill fitting dentures but is tolerating current diet texture/consistency. Is drinking Ensures. Last BM: 02/20/19. Last wt: 168# (02/16/19). Meds, labs, and skin assessment reviewed. Continue current nutrition regimen. RD Following
--- NOTE | 2019-02-21 17:45 | NUR ---
SITTING UP IN BED EATING SUPPER. SON IS VISITING. DENIES NEEDS.
--- NOTE | 2019-02-21 19:25 | NUR ---
PT LYING IN BED WATCHING TV. CL IN REACH. DENIES NEEDS OR PAIN AT THIS TIME. BED IN LOW SIDE RAILS X2. A/O X4. CHEST TUBE TO LEFT CHEST INTACT, NO DRAINAGE NOTED TO BARR BAG. BOWEL ACTIVE X4. RESP EVEN AND UNLABORED. O2 ON 4L HIGH FLOW. WCTM
[2019-02-21 21:29] VITALS: BP 127/63
--- NOTE | 2019-02-22 01:37 | NUR ---
I have reviewed this patient and I concur with the Shift Assessment completed by the Licensed Practical Nurse today this shift.
--- NOTE | 2019-02-22 05:45 | NUR ---
WOKE PT FOR PROTONIX. PT SITTING UP WATCHING TV. CL IN REACH. DENIES NEEDS. WCTM
--- NOTE | 2019-02-22 08:00 | NUR ---
BREAKFAST GIVEN.DENIES NEEDS.CL IN REACH.
[2019-02-22 08:04] VITALS: BP 127/64
[2019-02-22 11:42] LABS: BASOPHILS 0.2 % (0-2); EOSINOPHILS 4.8 % (0-7); HEMATOCRIT 33.9 % (42.0-54.0); HEMOGLOBIN 10.9 g/dL (13.5-17.5); IMMATURE GRANULOCYTES 0.3 % (0-5); LYMPHOCYTES 9.6 % (15-50); MCH 29.7 pg (26.0-34.0); MCHC 32.2 g/dL (31.0-37.0); MCV 92.4 fL (80.0-100.0); MEAN PLATELET VOLUME 10.6 fL (7.4-10.4); MONOCYTES 10.7 % (2-11); NEUTROPHILS 74.4 % (40-80); PLATELET COUNT 298 10x3/uL (130-400); RBC 3.67 10x6/uL (4.20-6.10); RDW 13.8 % (11.5-14.5); WBC 8.8 10x3/uL (4.8-10.8)
[2019-02-22 11:51] LABS: CALC OSMOLALITY 282 mosm/kg (275-300); CARBON DIOXIDE 32.8 mmol/L (21.0-32.0); CHLORIDE - SERUM 101 mmol/L (98-107); CREATININE - SERUM 0.9 mg/dL (0.6-1.3); GLUCOSE 123 mg/dL (74-106); POTASSIUM - SERUM 4.8 mmol/L (3.5-5.1); SODIUM 139 mmol/L (136-145); UREA NITROGEN 24 mg/dL (7-18); eGFR NON AFRICAN AMERICAN 88 mL/min (90-120)
--- NOTE | 2019-02-22 12:00 | NUR ---
SITTING UP IN WHEELCHAIR. AT BEDSIDE.
--- NOTE | 2019-02-22 19:19 | NUR ---
PATIENT RECEIVED SITTING UP IN BED. ASSESSMENT & VITAL SIGNS DONE.NO C/O PAIN OR DISTRESS. CALL LIGHT WITHIN REACH. WILL CONTINUE TO MONITOR.
[2019-02-22 21:17] VITALS: BP 113/71
--- NOTE | 2019-02-22 22:12 | NUR ---
PATIENT MEDICATIONS LATE PER PATIENT. WANTED MEDS AT TEN. CALL LIGHT WITHIN REACH. WILL CONTINUE TO MONITOR.
--- NOTE | 2019-02-23 00:22 | NUR ---
PATIENT 02 LEVEL 97% ON 3LNC. TITRATING PATIENT TO 2.5L AT THIS TIME. WILL CONTINUE TO MONITOR.
--- NOTE | 2019-02-23 00:51 | NUR ---
PATIENT 02 LEVEL 94% @ 2.5. PATIENT 02 WILL CONTINUE ON 2.5L FOR REST OF NIGHT.
--- NOTE | 2019-02-23 04:28 | NUR ---
PATIENT BACK FROM RADIOLOGY. 2 CHEST X-RAYS TAKEN. PATIENT TOLERATED IT WELL. 02 94% ON 2.5L 02. PATIENT RETURNED TO BED. HEAD 30 DEGREES. CALL LIGHT WITHIN REACH. WILL CONTINUE TO MONITOR.
--- NOTE | 2019-02-23 04:59 | NUR ---
I have reviewed this patient and I concur with the Shift Assessment completed by the Licensed Practical Nurse today this shift.
[2019-02-23 08:00] VITALS: BP 120/71
--- NOTE | 2019-02-23 08:00 | NUR ---
SHIFT ASSMT COMPLETED.BREAKFAST GIVEN.
--- NOTE | 2019-02-23 12:00 | NUR ---
SITTING UP IN CHAIR EATING LUNCH.
[2019-02-23 19:00] VITALS: BP 122/64
--- NOTE | 2019-02-23 19:33 | NUR ---
GREETED PATIENT AND INTRODUCED MYSELF HIS NURSE. PATIENT IS LAYING IN BED AT PRESENT TAKING A BREATHING TREATMENT. DENIES ANY NEEDS AT THIS TIME. RESPIRATIONS EVEN. NO S/S OF DISTRESS. CALL LIGHT IN REACH.
--- NOTE | 2019-02-24 02:02 | NUR ---
PATIENT RESTING QUIETLY WITH EYES CLOSED. RESPIRATIONS EVEN. NO S/S OF DISTRESS. SR UP X 2. BED IN LOWEST POSITION. CALL LIGHT IN REACH
[2019-02-24 07:18] LABS: BASOPHILS 0.1 % (0-2); HEMATOCRIT 33.1 % (42.0-54.0); HEMOGLOBIN 10.3 g/dL (13.5-17.5); IMMATURE GRANULOCYTES 0.4 % (0-5); LYMPHOCYTES 15.8 % (15-50); MCH 29.3 pg (26.0-34.0); MCHC 31.1 g/dL (31.0-37.0); MEAN PLATELET VOLUME 10.9 fL (7.4-10.4); MONOCYTES 13.6 % (2-11); NEUTROPHILS 61.1 % (40-80); PLATELET COUNT 275 10x3/uL (130-400); RBC 3.52 10x6/uL (4.20-6.10); RDW 13.7 % (11.5-14.5); WBC 7.6 10x3/uL (4.8-10.8)
[2019-02-24 07:37] VITALS: BP 117/60
[2019-02-24 07:52] LABS: CALC OSMOLALITY 280 mosm/kg (275-300); CALCIUM 8.6 mg/dL (8.5-10.1); CARBON DIOXIDE 30.6 mmol/L (21.0-32.0); CHLORIDE - SERUM 103 mmol/L (98-107); GLUCOSE 103 mg/dL (74-106); POTASSIUM - SERUM 4.4 mmol/L (3.5-5.1); SODIUM 138 mmol/L (136-145); UREA NITROGEN 26 mg/dL (7-18); eGFR NON AFRICAN AMERICAN 78 mL/min (90-120)
[2019-02-24] MEDS ORDERED: HYDROCODON-ACE1 EAC7 PO (08:46)
--- NOTE | 2019-02-24 12:18 | NUR ---
PATIENT DISCHARGING HOME TODAY WITH FAMILY. [facility] WILL PROVIDE THERAPY AT HOME HOME. [facility] WILL DELIVER A NEBULIZER TO PATIENT. DR. PRESLEY 03/02/19 @ 3:00, DR. GORDON 03/01/19 @ 1:15, PRIOR TO APPOINTMENT PATIENT TO HAVE CHEST XRAY AT [facility] OUT PT. DR. JOHN 03/07/19 @ 10:40. PATIENT CHOICE FORM [facility] FORMS SIGNED, COPY GIVEN TO PATIENT AND FILED IN CHART. DISCHARGE INSTRUCTIONS WITH [facility] FAXED TO PCP, HOME HEALTH AND REVIEWED WITH PATIENT AND SPOUSE.
--- NOTE | 2019-02-24 13:00 | NUR ---
DC HOME WITH ALL PERSONAL BELONGINGS. MEDS CALLED INTO DME SUPPLY/PHARMACY THAT SUPPLIED NEBULIZER. [facility] MEDS THROUGH THIS PHARMACY. REVIEWED MEDS. FOLLOW UP APPTS, CARE FOR CHEST TUBE AND HOW TO CHANGE 4X4'S TO END OF HEIMLIGH TUBE. STATES UNDERSTANDING OF TEACHING AND DENIES QUESTIONS.
--- NOTE | 2019-02-24 14:56 | NUR ---
CARE FOR UNABLE TO ACCEPT PATIENT AT THIS TIME, REFERRAL SENT TO [facility]
--- NOTE | 2019-05-02 09:55 | DS ---
PATIENT:XIMENA MANZANO :43 MEDICAL RECORD: [id number] DISCHARGE SUMMARY ADMISSION DATE: 02/15/19 DISCHARGE DATE: 02/24/19 This is a discharge dated 02/24/2019 from inpatient rehabilitation. PRIMARY DIAGNOSIS: Decreased functional ability and ability to provide activities of daily living secondary to critical illness myopathy. SECONDARY DIAGNOSES: 1. Left pneumothorax, status post VATS. 2. Coronary artery disease. 3. Chronic obstructive pulmonary disease. 4. Severe bullous emphysema. 5. Acute on chronic hypoxic respiratory failure. 6. Anemia. 7. Benign prostatic hypertrophy. 8. Constipation. 9. Gastroesophageal reflux disease. 10. Chronic back pain. 11. Paroxysmal atrial fibrillation. CONSULTANTS FOLLOWING THIS HOSPITAL STAY: Pulmonary with Dr. oPwers. HOSPITAL COURSE: Full H&P is located elsewhere on the chart on this 73-year-old male who was admitted to inpatient rehab for physical therapy and occupational therapy to improve gait, transfer skills, bed mobility, and activities of daily living to a modified independent level. He was evaluated by PT and OT and their plans of care were followed. He required penitentiary care for observation and assessment and medication administration as well as wound care and monitoring of chest tube. He did have a CT drain in place with a Heimlich valve attached to a Snyder drain bag. He had supplemental oxygen to keep sats greater than 90%, remained on inhaled medications for respiratory support. Electrolytes were managed by protocol. He was seen by Dr. Powers in followup and it was determined that, by imaging, he still had a small pneumothorax on the left sides, so chest tube was continued upon discharge. He was cooperative with therapies, progressing towards goals. Case management was involved for discharge planning. He was considered stable for discharge on 02/24/2019, having met 3/4 long-term PT goals. Therapy was hampered by shortness of breath and low O2 sats. He met 4/7 manager intermediate and 5/5 short term OT goals with recommendations for continued therapy at the time of discharge. DISCHARGE MEDICATIONS: As per discharge medication reconciliation. DISCHARGE DISPOSITION: The patient is discharged home. He will continue his current diet and level of activity. He will have home health for continued penitentiary care and PT and OT. He will have a chest x-ray and follow up with Dr. Moralez as directed for monitoring of chest drain, have nebulized medications through [facility] and will follow up with primary care and specialists as directed. At least 30 minutes was spent in this discharge activity. TRANSINT:[id number] Voice Confirmation ID: [id number] DOCUMENT ID: [id number] DISCHARGE SUMMARY REPORT [id number] XIMENA MANZANO Dictated By: BIANCA PERSAUD I have interviewed/examined the above patient and agree with these documented findings. JUWAN BECERRA MD at 0958 at 0955 CC: [id number] DICTATION DATE: 04/30/19 1559 LOG CHAIN FEEDER: 05/01/19 0106 DIS IN 02/24/19 [facility] [address] [place] [address]
== END 2019-02-24 13:00 | disposition home health service (06) | DRG 91 ==
LOC: D.CLR 17:30 → D.REHAB 18:44
PROVIDERS: ADMIT Emergency Medicine; ATTEND Emergency Medicine
DX: G72.81 Critical illness myopathy (principal); J96.21 Acute and chronic respiratory failure with hypoxia; J93.9 Pneumothorax, unspecified; J43.9 Emphysema, unspecified; I25.10 Atherosclerotic heart disease of native coronary artery without angina pectoris; N40.0 Benign prostatic hyperplasia without lower urinary tract symptoms; K59.00 Constipation, unspecified; R05 Cough; D64.9 Anemia, unspecified; K21.9 Gastro-esophageal reflux disease without esophagitis; R53.81 Other malaise; G89.29 Other chronic pain; I27.20 Pulmonary hypertension, unspecified; I48.0 Paroxysmal atrial fibrillation

== ENCOUNTER → 2019-03-01 12:13 | Outpatient (CLI) | payer MEDICARE, OTHER ==
[2019-02-16 09:39] VITALS: BMI 24.1
[~2019-03-01 12:13] MED LIST changes: +ATROVENT 0.02%2.5 ML UPD; +BROVANA15 MCG/2 M INH; +COLACE100 MG PO; +FERROUS SULFAT325 MG PO; +FLOMAX0.4 MG PO; +HYDROCODON-ACE1 EAC7 PO; +LOPRESSOR25 MG PO; +MUCINEX DM ER1 EAC1 PO; +PULMICORT0.5 MG/21 INH; +TESSALON PERLE100 MG PO; +XOPENEX 0.0.63 MG/3 UPD; +ZOFRAN4 MG PO
== END | disposition home or self-care (01) ==
LOC: D.LAB 12:13
PROVIDERS: ATTEND Thoracic Surgery (Cardiothoracic Vascular Surgery)
DX: J90 Pleural effusion, not elsewhere classified (principal)

== ENCOUNTER → 2019-03-02 14:14 | Outpatient (CLI) | payer MEDICARE, OTHER ==
[2019-02-16 09:39] VITALS: BMI 24.1
== END | disposition home or self-care (01) ==
LOC: D.RAD 13:49
PROVIDERS: ATTEND Thoracic Surgery (Cardiothoracic Vascular Surgery)
DX: J93.9 Pneumothorax, unspecified (principal)

== ENCOUNTER → 2019-03-06 11:18 | Outpatient (CLI) | payer MEDICARE, OTHER ==
[2019-02-16 09:39] VITALS: BMI 24.1
== END | disposition home or self-care (01) ==
LOC: D.RAD 11:18
PROVIDERS: ATTEND Thoracic Surgery (Cardiothoracic Vascular Surgery)
DX: J90 Pleural effusion, not elsewhere classified (principal)

== ENCOUNTER → 2019-03-22 09:15 | Outpatient (CLI) | payer MEDICARE, OTHER ==
[2019-02-16 09:39] VITALS: BMI 24.1
== END | disposition home or self-care (01) ==
LOC: D.RAD 09:15
PROVIDERS: ATTEND Thoracic Surgery (Cardiothoracic Vascular Surgery)
DX: J90 Pleural effusion, not elsewhere classified (principal)

== ENCOUNTER → 2019-06-07 09:24 | Outpatient (CLI) | payer MEDICARE, OTHER ==
[2019-02-16 09:39] VITALS: BMI 24.1
== END | disposition home or self-care (01) ==
LOC: D.RAD 09:24
PROVIDERS: ATTEND Internal Medicine Cardiovascular Disease
DX: Z98.890 Other specified postprocedural states (principal)

== ENCOUNTER → 2020-08-28 09:17 | Outpatient (CLI) | payer MEDICARE, OTHER ==
[2019-02-16 09:39] VITALS: BMI 24.1
== END | disposition home or self-care (01) ==
LOC: D.RT 09:17 → D.RAD 09:30 → D.RT 09:30
PROVIDERS: ATTEND Internal Medicine Pulmonary Disease
DX: J96.11 Chronic respiratory failure with hypoxia (principal)